=== PATIENT | female | born 1940 | race Two or more races ===

== ENCOUNTER 2017-08-30 17:07 | Inpatient (IN) | payer OTHER ==
[~2017-08-30] VITALS: Ht 162.6 cm; Wt 74.8 kg
[2017-08-30 18:00] VITALS: BP 167/92
[2017-08-30] MEDS ORDERED: Dicyclomine HCl 10mg/5ml oral soln ORAL ONE (18:30)
--- NOTE | 2017-08-30 18:32 | Emergency Room Report ---
History of Present Illness General Chief Complaint: Flu Like Symptoms Source: Patient Present Illness HPI 76yo F presents with cough for 3 days and recent diagnosis with pneumonia as well as flu for which she was prescribed clarithromycin and she is on day 3 of that Today she presents mainly because she started to develop abdominal pain constant left lower quad with no vomiting or diarrhea She denies fevers Denies shortness of breath Denies chest pain, and reports her cough is improving She denies hemoptysis, leg swelling or leg pain Allergies: Coded Allergies: No Known Allergies (Unverified , 08/30/17) Patient History Past Medical History: see triage record Last Menstrual Period: na Nursing Documentation-[facility] Past Medical History: No History, Except For Hx Hypertension: Yes Review of Systems All Other Systems: negative except mentioned in HPI Physical Exam Vital Signs Date Time Temp Pulse Resp B/P (MAP) Pulse Ox O2 Delivery O2 Flow Rate FiO2 08/30/17 17:23 100.2 88 18 181/90 93 Room Air Sp02 EP Interpretation: reviewed, normal General Appearance: no apparent distress, alert, non-toxic Head: normocephalic Eyes: bilateral eye normal inspection, bilateral eye PERRL, bilateral eye EOMI ENT: normal ENT inspection, hearing grossly normal, normal pharynx, no angioedema, normal voice, moist mucus membranes Neck: normal inspection, full range of motion, supple, supple/symm/no masses Respiratory: chest non-tender, lungs clear, normal breath sounds, chest symmetrical, palpation of chest normal Cardiovascular #1: normal peripheral pulses, regular rate, rhythm, no edema - trace ankle edema ilateral lower extremity, other - negative Homans sign bilateral lower extremity Cardiovascular #2: 2+ radial (R), 2+ radial (L), 2+ dorsalis pedis (R), 2+ dorsalis pedis (L) Gastrointestinal: normal inspection, non tender - positive left lower quadrant tenderness, soft, no mass, no guarding, no rebound, tenderness - left lower quadrant tenderness Rectal: deferred Genitourinary: normal inspection, no CVA tenderness Musculoskeletal: back normal, gait/station normal, normal range of motion, non- tender, no calf tenderness Neurologic: alert, responsive, 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 Solorzano, who will come in to take patient to OR. ABX started, family aware, patient remains stable. Chest X-Ray Diagnostic Results Chest X-Ray Diagnostic Results : Chest X-Ray Ordered: Yes # of Views/Limited/Complete: 1 View Indication: Shortness of Breath EP Interpretation: No Interpretation: other - free air Electronically Signed by: Elaine Dhillon MD CT/MRI/US Diagnostic Results CT/MRI/US Diagnostic Results : Imaging Test Ordered: ct abd pelvis Impression perforated sigmoid colon, no abscess Last Vital Signs Date Time Temp Pulse Resp B/P (MAP) Pulse Ox O2 Delivery O2 Flow Rate FiO2 08/30/17 17:23 100.2 88 18 181/90 93 Room Air Status: improved Reevaluation Impression pain improved with meds, and still stable, will admit to gen surgery Disposition: ADMITTED INPATIENT Referrals: [facility],REFERRING (PCP) ELAINE DHILLON M.D Aug 30, 2017 18:32
[2017-08-30 18:53] LABS: HEMATOCRIT 43.5 % (37.0-47.0); MEAN CORPUSCULAR VOLUME 92 FL (80-99); PLATELET COUNT 259 K/UL (150-450); RED BLOOD COUNT 4.74 M/UL (4.20-5.40); RED CELL DISTRIBUTION WIDTH 12.1 % (11.6-14.8)
[2017-08-30 19:23] LABS: ANION GAP 7 mmol/L (5-15); BLOOD UREA NITROGEN 13 mg/dL (7-18); CALCIUM 9.4 MG/DL (8.5-10.1); CARBON DIOXIDE 31 MMOL/L (21-32); CHLORIDE 103 MMOL/L (98-107); CREATININE 0.6 MG/DL (0.55-1.30); POTASSIUM 3.9 MMOL/L (3.5-5.1); SODIUM 140 MMOL/L (136-145)
[2017-08-30 19:27] LABS: ALANINE AMINOTRANSFERASE 36 U/L (12-78); ALBUMIN 3.8 G/DL (3.4-5.0); ALBUMIN/GLOBULIN RATIO 1.1 (1.0-2.7); ALKALINE PHOSPHATASE 64 U/L (46-116); ASPARTATE AMINO TRANSFERASE 36 U/L (15-37); BILIRUBIN,TOTAL 0.7 MG/DL (0.2-1.0)
[2017-08-30 19:30] VITALS: BP 162/89
[2017-08-30 19:35] LABS: APPEARANCE,URINE CLEAR; BILIRUBIN, URINE NEGATIVE (NEGATIVE); COLOR,URINE PALE YELLOW; GLUCOSE, URINE (UA) NEGATIVE (NEGATIVE); KETONES,URINE NEGATIVE (NEGATIVE); LEUKOCYTE ESTERASE ,URINE 1+ (NEGATIVE); NITRITE,URINE NEGATIVE (NEGATIVE); PH,URINE 8 (4.5-8.0); PROTEIN,URINE NEGATIVE (NEGATIVE); UROBILINOGEN,URINE NORMAL MG/DL (0.0-1.0)
[2017-08-30] MEDS ORDERED: Unasyn 3gm Inj IV ONE (19:45)
[2017-08-30] MEDS ORDERED: ZYRTEC10 MG ORAL (19:59)
[2017-08-30] MEDS ORDERED: CLARITHROMYCIN500 MG PO (19:59)
[2017-08-30] MEDS ORDERED: LOSARTAN POTASS50 MG ORAL (20:05)
[2017-08-30 20:30] VITALS: BP 151/71
[2017-08-30 21:30] VITALS: BP 162/74
--- NOTE | 2017-08-30 22:15 | Consultation ---
History of Present Illness General Date patient seen: Aug 30, 2017 Chief Complaint: Flu Like Symptoms Reason for Consultation: perforated viscus Present Illness HPI 76 year old female with past medical history of HTN, osteoperosis, arthritis presented with acute onset of abdominal pain x 1 day. As per patient, she was doing well until 10:00am this morning when she noted acute lower abdominal discomfort that has since progressed. Pain described as 9/10 cramping/sharp lower abdominal pain without radiation. No associated nausea or emesis. No fever or chills. As pain progressed she came to ED for evaluation. In ED noted to have lower abdominal tenderness, leukocytosis of 19k, and plain films with free air. CT performed and identified pneumoperitoneum with likely etiology perforated sigmoid colon. Surgery called. Patient states last meal earlier today. Currently no appetite. Had two normal BM's this morning around time of pain. Has never had colonoscopy prior. PMHx: osteoperosis, HTN, arthritis PSHx: Hysterectomy Meds: Losartan NKDA Social Hx: negative x3 FHx: n/c Allergies: Coded Allergies: No Known Allergies (Unverified , 08/30/17) Medication History Scheduled Clarithromycin* (Clarithromycin*), 500 MG PO DAILY, (Reported) Losartan Potassium* (Losartan Potassium*), 100 MG ORAL DAILY, (Reported) Scheduled PRN Cetirizine Hcl* (Zyrtec*), 10 MG ORAL DAILY PRN for ALLERGIES, (Reported) Patient History History Provided By: Patient, Family Member Healthcare decision maker Resuscitation status Advanced Directive on File Past Medical/Surgical History Past Medical/Surgical History: (1) H/O hysterectomy with oophorectomy (2) HTN (hypertension) (3) Age related osteoporosis (4) Arthritis (5) Pneumoperitoneum (6) Acute abdomen (7) Peritonitis Review of Systems Constitutional: Denies: no symptoms, see HPI, chills, sweats, fever, malaise, weakness, other Eye: Denies: no symptoms, see HPI, eye pain, blurred vision, tearing, double vision, nose pain, nose congestion, acuity changes, discharge, other ENT: Denies: no symptoms, see HPI, ear pain, ear discharge, nose pain, nose congestion, throat pain, throat swelling, mouth pain, hearing loss, nasal discharge, other Respiratory: Reports: cough, Denies: no symptoms, see HPI, orthopnea, shortness of breath, stridor, wheezing, PAYNE, sputum, other Cardiovascular: Denies: no symptoms, see HPI, chest pain, edema, palpitations, syncope, PND, other Gastrointestinal: Reports: abdominal pain Genitourinary: Denies: no symptoms, see HPI, discharge, dysuria, frequency, hematuria, pain, retention, incontinence, urgency, vag bleed/dc, other Musculoskeletal: Denies: no symptoms, see HPI, back pain, gout, joint pain, joint swelling, muscle pain, muscle stiffness, other Skin: Denies: no symptoms, see HPI, rash, change in color, change in hair/nails , dryness, lesions, other Psychiatric: Denies: no symptoms, see HPI, prior hx, anxiety, depressed feelings, emotional problems, SI, HI, hallucinations, other Neurological: Denies: no symptoms, see HPI, headache, numbness, paresthesia, seizure, tingling, tremors, focal weakness, syncope, dizziness, other Endocrine: Denies: no symptoms, see HPI, excessive sweating, flushing, intolerance to temperature, increased thirst, increased urine, unexplained weight loss, other Hematologic/Lymphatic: Denies: no symptoms, see HPI, anemia, blood clots, easy bleeding, easy bruising, swollen glands, diathesis, other Physical Exam General Appearance: mild distress Lines, tubes and drains: peripheral HEENT: normocephalic, mucous membranes moist, PERRL Neck: normal inspection Respiratory/Chest: normal breath sounds, no respiratory distress, no accessory muscle use Cardiovascular/Chest: normal peripheral pulses, normal rate, regular rhythm Abdomen: soft, distended, guarding, rebound, tender, other - lower abdominal tendneress with peritonitis, guarding, rebound. Extremities: normal inspection Skin Exam: normal pigmentation Neurologic: alert, oriented x 3, responsive Last 24 Hour Vital Signs Date Time Temp Pulse Resp B/P (MAP) Pulse Ox O2 Delivery O2 Flow Rate FiO2 08/30/17 19:30 98.8 84 18 162/89 98 Room Air 08/30/17 18:00 101.1 18 167/92 93 Room Air 08/30/17 18:00 88 18 Room Air 08/30/17 17:23 100.2 88 18 181/90 93 Room Air Laboratory Tests Test 2/8/18 18:16 08/30/17 19:00 08/30/17 20:10 White Blood Count 19.0 K/UL (4.8-10.8) H Red Blood Count 4.74 M/UL (4.20-5.40) Hemoglobin 15.0 G/DL (12.0-16.0) Hematocrit 43.5 % (37.0-47.0) Mean Corpuscular Volume 92 FL (80-99) Mean Corpuscular Hemoglobin 31.6 PG (27.0-31.0) H Mean Corpuscular Hemoglobin Concent 34.4 G/DL (32.0-36.0) Red Cell Distribution Width 12.1 % (11.6-14.8) Platelet Count 259 K/UL (150-450) Mean Platelet Volume 9.1 FL (6.5-10.1) Neutrophils (%) (Auto) % (45.0-75.0) Lymphocytes (%) (Auto) % (20.0-45.0) Monocytes (%) (Auto) % (1.0-10.0) Eosinophils (%) (Auto) % (0.0-3.0) Basophils (%) (Auto) % (0.0-2.0) Differential Total Cells Counted 100 Neutrophils % (Manual) 82 % (45-75) H Lymphocytes % (Manual) 12 % (20-45) L Monocytes % (Manual) 6 % (1-10) Eosinophils % (Manual) 0 % (0-3) Basophils % (Manual) 0 % (0-2) Band Neutrophils 0 % (0-8) Platelet Estimate Adequate Platelet Morphology Normal Red Blood Cell Morphology Normal Prothrombin Time 10.1 SEC (9.30-11.50) Prothromb Time International Ratio 1.0 (0.9-1.1) Activated Partial Thromboplast Time 29 SEC (23-33) Sodium Level 140 MMOL/L (136-145) Potassium Level 3.9 MMOL/L (3.5-5.1) Chloride Level 103 MMOL/L (98-107) Carbon Dioxide Level 31 MMOL/L (21-32) Anion Gap 7 mmol/L (5-15) Blood Urea Nitrogen 13 mg/dL (7-18) Creatinine 0.6 MG/DL (0.55-1.30) Estimat Glomerular Filtration Rate mL/min (>60) Glucose Level 105 MG/DL (74-106) Calcium Level 9.4 MG/DL (8.5-10.1) Total Bilirubin 0.7 MG/DL (0.2-1.0) Aspartate Amino Transf (AST/SGOT) 36 U/L (15-37) Alanine Aminotransferase (ALT/SGPT) 36 U/L (12-78) Alkaline Phosphatase 64 U/L (46-116) Troponin I 0.010 ng/mL (0.000-0.056) Total Protein 7.4 G/DL (6.4-8.2) Albumin 3.8 G/DL (3.4-5.0) Globulin 3.6 g/dL Albumin/Globulin Ratio 1.1 (1.0-2.7) Lipase 112 U/L (73-393) Urine Color Pale yellow Urine Appearance Clear Urine pH 8 (4.5-8.0) Urine Specific [place] 1.015 (1.005-1.035) Urine Protein Negative (NEGATIVE) Urine Glucose (UA) Negative (NEGATIVE) Urine Ketones Negative (NEGATIVE) Urine Occult Blood Negative (NEGATIVE) Urine Nitrite Negative (NEGATIVE) Urine Bilirubin Negative (NEGATIVE) Urine Urobilinogen Normal MG/DL (0.0-1.0) Urine Leukocyte Esterase 1+ (NEGATIVE) H Urine RBC 0-2 /HPF (0 - 2) Urine WBC 2-4 /HPF (0 - 2) Urine Squamous Epithelial Cells Few /LPF (NONE/OCC) Urine Bacteria Few /HPF (NONE) Lactic Acid Level 2.10 mmol/L (0.66-2.22) 1.60 mmol/L (0.66-2.22) Height (Feet): 5 Height (Inches): 4.00 Weight (Pounds): 165 Medications Current Medications Medications (Trade) Dose Ordered Sig/Esther Route PRN Reason Start Time Stop Time Status Last Admin Dose Admin Sodium Chloride 1,000 ml @ 100 mls/hr Q10H ONCE IV 08/30/17 17:53 08/31/17 03:52 08/30/17 18:18 Assessment/Plan Problem List: (1) Perforated abdominal viscus Assessment & Plan: 76F with acute perforated abdominal viscus likely sigmoid colon. Afebrile, HD stable, leukocytosis 19k, CT findings as above, exam with lower abdominal peritonitis/rebound/guarding, acute abdomen. discussed findings with patient and family. exploratory laparotomy, possible bowel resection, possible ostomy recommended. -To OR don -NPO -IV fluids -IV Abx -consent SNOMED: [id number] Blake Farley Aug 30, 2017 22:15
[2017-08-30 22:30] VITALS: BP 148/71
[2017-08-30] MEDS ORDERED: LR 1000ml 1,000 ML IVLG SCH (22:56)
[2017-08-30] MEDS ORDERED: HYDROcodone/Acetamin 7.5/325 tab ORAL PRN (23:00)
[2017-08-30] MEDS ORDERED: Ketorolac 60mg Inj IV PRN (23:00)
[2017-08-30] MEDS ORDERED: Labetalol 5mg/ml 20ml vial IV PRN (23:00)
[2017-08-30] MEDS ORDERED: LORazepam Inj 2mg/ml 1ml IV PRN (23:00)
[2017-08-30] MEDS ORDERED: Hydromorphone 0.5mg/0.5ml inj IVP PRN (23:00)
[2017-08-30] MEDS ORDERED: fentaNYL 100 mcg/2 mL IV PRN (23:00)
[2017-08-30] MEDS ORDERED: Midazolam 2mg/2ml Inj IVP PRN (23:00)
[2017-08-30] MEDS ORDERED: DiphenhydrAMINE 50mg/ml Inj IVP PRN (23:00)
[2017-08-30] MEDS ORDERED: Atropine Inj 1mg/10ml Syr IV PRN (23:00)
[2017-08-30] MEDS ORDERED: NS Irrig 1000ml ONE (23:00)
[2017-08-30] MEDS ORDERED: Lidocaine 1% MPF 10mg/ml 5ml ONE (23:00)
[2017-08-30] MEDS ORDERED: Neostigmine 1mg/ml 10ml Inj ONE (23:00)
[2017-08-30] MEDS ORDERED: Sterile Water Irrig 1000ml IRRIG ONE (23:00)
[2017-08-30] MEDS ORDERED: Ketorolac 30mg Inj IV PRN (23:00)
[2017-08-30] MEDS ORDERED: fentaNYL 100 mcg/2 mL IV ONE (23:00)
[2017-08-30] MEDS ORDERED: LR 1000ml ONE (23:00)
[2017-08-30] MEDS ORDERED: Propofol 200mg/20ml IV ONE (23:00)
[2017-08-30] MEDS ORDERED: Norco 5mg/325mg tab ORAL PRN (23:00)
[2017-08-30] MEDS ORDERED: Midazolam 2mg/2ml Inj ONE (23:00)
[2017-08-30] MEDS ORDERED: Glycopyrrolate 0.2mg/ml 1ml Vial ONE (23:00)
[2017-08-30] MEDS ORDERED: oxyCODONE HCL/Acetaminophen 5/325mg ORAL PRN (23:00)
--- NOTE | 2017-08-30 23:07 | Anethesia Preoperative Eval ---
Anesthesia Pre-op PMH/ROS General Date of Evaluation: Aug 30, 2017 Time of Evaluation: 11:11 Anesthesiologist: Chacho ASA Score: ASA 3 - Emergency Mallampati Score Class I : Soft palate, uvula, fauces, pillars visible Class II: Soft palate, uvula, fauces visible Class III: Soft palate, base of uvula visible Class IV: Only hard plate visible Mallampati Classification: Class II Surgeon: Martine Diagnosis: Colon Perforation Surgical Procedure: Exp Lap, Colon Resection Anesthesia History: none Family History: no anesthesia problems Allergies: Coded Allergies: No Known Allergies (Unverified , 08/30/17) Medications: see eMAR Past Medical History Cardiovascular: Reports: HTN Pulmonary: Reports: asthma - Bronchitis Gastrointestinal/Genitourinary: Reports: other - Colon Perforation Anesthesia Pre-op Phys. Exam Physician Exam Last Vital Signs Date Time Temp Pulse Resp B/P (MAP) Pulse Ox O2 Delivery O2 Flow Rate FiO2 08/30/17 19:30 98.8 84 18 162/89 98 Room Air Constitutional: NAD Neurologic: CN 2-12 intact Cardiovascular: RRR Respiratory: CTA Gastrointestinal: S/NT/ND Airway Exam Mallampati Score: Class II MO: limited ROM: limited Teeth: missing, intact Anesthesia Pre-op A/P Labs Hematology Test 08/30/17 18:16 White Blood Count 19.0 K/UL (4.8-10.8) H Red Blood Count 4.74 M/UL (4.20-5.40) Hemoglobin 15.0 G/DL (12.0-16.0) Hematocrit 43.5 % (37.0-47.0) Mean Corpuscular Volume 92 FL (80-99) Mean Corpuscular Hemoglobin 31.6 PG (27.0-31.0) H Mean Corpuscular Hemoglobin Concent 34.4 G/DL (32.0-36.0) Red Cell Distribution Width 12.1 % (11.6-14.8) Platelet Count 259 K/UL (150-450) Mean Platelet Volume 9.1 FL (6.5-10.1) Neutrophils (%) (Auto) % (45.0-75.0) Lymphocytes (%) (Auto) % (20.0-45.0) Monocytes (%) (Auto) % (1.0-10.0) Eosinophils (%) (Auto) % (0.0-3.0) Basophils (%) (Auto) % (0.0-2.0) Differential Total Cells Counted 100 Neutrophils % (Manual) 82 % (45-75) H Lymphocytes % (Manual) 12 % (20-45) L Monocytes % (Manual) 6 % (1-10) Eosinophils % (Manual) 0 % (0-3) Basophils % (Manual) 0 % (0-2) Band Neutrophils 0 % (0-8) Platelet Estimate Adequate Platelet Morphology Normal Red Blood Cell Morphology Normal Coagulation Test 08/30/17 18:16 Prothrombin Time 10.1 SEC (9.30-11.50) Prothromb Time International Ratio 1.0 (0.9-1.1) Activated Partial Thromboplast Time 29 SEC (23-33) Chemistry Test 08/30/17 18:16 08/30/17 19:00 08/30/17 20:10 Sodium Level 140 MMOL/L (136-145) Potassium Level 3.9 MMOL/L (3.5-5.1) Chloride Level 103 MMOL/L (98-107) Carbon Dioxide Level 31 MMOL/L (21-32) Anion Gap 7 mmol/L (5-15) Blood Urea Nitrogen 13 mg/dL (7-18) Creatinine 0.6 MG/DL (0.55-1.30) Estimat Glomerular Filtration Rate mL/min (>60) Glucose Level 105 MG/DL (74-106) Calcium Level 9.4 MG/DL (8.5-10.1) Total Bilirubin 0.7 MG/DL (0.2-1.0) Aspartate Amino Transf (AST/SGOT) 36 U/L (15-37) Alanine Aminotransferase (ALT/SGPT) 36 U/L (12-78) Alkaline Phosphatase 64 U/L (46-116) Troponin I 0.010 ng/mL (0.000-0.056) Total Protein 7.4 G/DL (6.4-8.2) Albumin 3.8 G/DL (3.4-5.0) Globulin 3.6 g/dL Albumin/Globulin Ratio 1.1 (1.0-2.7) Lipase 112 U/L (73-393) Lactic Acid Level 2.10 mmol/L (0.66-2.22) 1.60 mmol/L (0.66-2.22) Risk Assessment & Plan Assessment: ASA 3E Plan: GA, BIS, GlideScope Go Status Change Before Surgery: No Pre-Antibiotics Dru Grams Ancef IV Given Within 1 Hr of Incision: Yes Time Given: 11:31 Jonathan Flor MD Aug 30, 2017 23:07
--- NOTE | 2017-08-30 23:08 | Pre-Procedure Note/Attestation ---
Pre-Procedure Note/Attestation Complete Prior to Procedure Planned Procedure: not applicable Procedure Narrative: exploratory laparostomy, possible bowel resection, possible ostomy Indications for Procedure Pre-Operative Diagnosis: perforated abdominal viscus Attestation I attest that I discussed the nature of the procedure; its benefits; risks and complications; and alternatives (and the risks and benefits of such alternatives ), prior to the procedure, with the patient (or the patient's legal maintenance representative). I attest that, if there was a reasonable possibility of needing a blood transfusion, the patient (or the patient's legal maintenance representative) was given the [facility] standardized written summary, pursuant to the Alfredo Dave Blood Safety Act ([place] Health and Safety Code # 1645, as amended). I attest that I re-evaluated the patient just prior to the surgery and that there has been no change in the patient's H&P, except as documented below: Blake Farley Aug 30, 2017 23:08
--- NOTE | 2017-08-30 23:08 | Immediate Post-Op Evaluation ---
Immediate Post-Op Evalulation Immediate Post-Op Evalulation Procedure: Exp Lap, Colon Resection Date of Evaluation: Aug 30, 2017 Time of Evaluation: 02:47 IV Fluids: 2000 LR Blood Products: 0 Estimated Blood Loss: 100 Urinary Output: 800 Blood Pressure Systolic: 158 Blood Pressure Diastolic: 80 Pulse Rate: 89 Respiratory Rate: 16 O2 Sat by Pulse Oximetry: 95 Temperature (Fahrenheit): 98.8 Pain Score (1-10): 2 Nausea: No Vomiting: No Complications 0 Patient Status: awake, reacts, patent, extubated, none Hydration Status: adequate Dru Grams Ancef IV Given Within 1 Hr of Incision: Yes Time Given: 23:31 Jonathan Flor MD Aug 30, 2017 23:08
[2017-08-31] VITALS (10 sets, daily range): BP systolic 110–162; BP diastolic 56–82
[2017-08-31] MEDS ORDERED: NS Irrig 2000ml IRRIG ONE (00:08)
--- NOTE | 2017-08-31 02:46 | Brief Operative Note ---
Immediate Post Operative Note Operative Note Pre-op Diagnosis: perforated abdominal viscus Procedure: exploratory laparotomy with sigmoid colon resection Post-op Diagnosis: perforated sigmoid diverticulitis Post-op Diagnosis: same as pre-op plus Surgeon: liliane Anesthesiologist: Alfred Anesthesia: general Specimen: yes - sigmoid colon, proximal and distal donut Complications: none Condition: stable Fluids: see records Estimated Blood Loss: volume Drains: none Implant(s) used?: No Blake Farley Aug 31, 2017 02:46
[2017-08-31] MEDS ORDERED: Ketorolac 30mg Inj IV PRN (03:00)
[2017-08-31] MEDS ORDERED: LR 1000ml 1,000 ML IV SCH (03:00)
[2017-08-31] MEDS ORDERED: DiphenhydrAMINE 50mg/ml Inj IVP PRN (03:00)
[2017-08-31] MEDS ORDERED: Hydromorphone 0.5mg/0.5ml inj IVP PRN (03:00)
[2017-08-31] MEDS: Piperacillin/Tazobactam 3.375 GM in NS 110 ML IVPB SCH ×3 (04:12→20:24)
[2017-08-31] MEDS ORDERED: NORVASC5 MG ORAL (04:36)
[2017-08-31] MEDS ORDERED: ASPIR 8181 MG ORAL (04:37)
[2017-08-31] MEDS: HYDROmorphone 1mg/ml Carpuject IVP PRN ×2 (06:35→18:25)
--- NOTE | 2017-08-31 08:25 | 48 Hour Post Anesthesia Eval ---
Post Anesthesia Evaluation Procedure: Exp Lap, Colon Resection Date of Evaluation: Aug 31, 2017 Time of Evaluation: 07:00 Blood Pressure Systolic: 121 0: 61 Pulse Rate: 82 Respiratory Rate: 18 Temperature (Fahrenheit): 99.7 O2 Sat by Pulse Oximetry: 95 Airway: patent Nausea: No Vomiting: No Pain Intensity: 2 Hydration Status: adequate Cardiopulmonary Status: at baseline Mental Status/LOC: patient returned to baseline Post-Anesthesia Complications: 0 Follow-up care needed: N/A - further care as per primary team MICHAEL DASILVA M.D. Aug 31, 2017 08:25
[2017-08-31] MEDS: LR 1000ml 1,000 ML IV SCH ×2 (08:30→13:31)
--- NOTE | 2017-08-31 09:12 | Diagnostic Imaging Report ---
Indication: Cough Technique: One view of the chest Comparison: none Findings: Sliver of lucency under the right hemidiaphragm is consistent with pneumoperitoneum. There is minimal atelectasis at the right lung base. The lungs and pleural spaces are otherwise clear. The heart is enlarged. Impression: Positive for pneumoperitoneum, therefore concerning for ruptured hollow viscus. Cardiomegaly Right basilar atelectasis. No other acute cardiopulmonary process This agrees with the preliminary interpretation provided overnight by [facility] service.
[2017-08-31] MEDS: Heparin 5000 units/ml inj SUBQ SCH ×2 (09:22→20:26)
--- NOTE | 2017-08-31 09:33 | Diagnostic Imaging Report ---
Clinical Indication: Abdominal pain Technique: No oral contrast utilized, per emergency room physician request IV administration nonionic contrast. Venous phase spiral acquisition obtained through the abdomen and pelvis. Multiplanar reconstructions were generated. Total dose length product 832.73 mGycm. CTDIvol(s) 15.7 mGy. Dose reduction achieved using automated exposure control Comparison: none Findings: There is a moderate size collection of extraluminal gas in the mesenteric fat surrounding the proximal sigmoid colon. Gas is seen dissecting through the mesenteric root, and there are bubbles of free intraperitoneal air in the anterior peritoneal space, over the dome of the liver, adjacent to the left hepatic lobe, adjacent to the greater curvature of the stomach, over the dome of the spleen, and extending into a broad-based umbilical hernia. No associated fluid collections are evident. There is colonic diverticulosis. There is only minimal infiltration of fat surrounding the perisigmoid gas collection. The appendix is normal. There are some mildly dilated fluid-filled small bowel loops in the lower abdomen, but no generalized small bowel distention and no transition point is demonstrated. The liver, gallbladder, bile ducts, pancreas, spleen, adrenals, kidneys are unremarkable. No retroperitoneal or mesenteric mass or adenopathy. No pelvic mass or adenopathy. The uterus is not visualized, presumed surgically absent The heart is borderline enlarged. Lung bases are clear except for minimal atelectatic changes. The bones demonstrate degenerative spondylosis changes. Impression: Extraluminal gas within the mesentery and peritoneal space. Largest gas collection is adjacent to the sigmoid colon suggesting ruptured diverticulitis as etiology. There is only minimal perisigmoid fat infiltration and no focal fluid collections. Mildly dilated fluid-filled small bowel loops likely reflect mild ileus related to the above Mild cardiomegaly Basilar atelectatic changes. Evidence of prior hysterectomy This agrees with the preliminary interpretation provided overnight by [facility]. The CT scanner at [facility] is accredited by the [employer] and the scans are performed using protocols designed to limit radiation exposure to as low as reasonably achievable to attain images of sufficient resolution adequate for diagnostic evaluation.
[2017-08-31 11:58] LABS: HEMATOCRIT 37.4 % (37.0-47.0); HEMOGLOBIN 12.9 G/DL (12.0-16.0); MEAN CORPUSCULAR VOLUME 93 FL (80-99); PLATELET COUNT 243 K/UL (150-450); RED CELL DISTRIBUTION WIDTH 12.4 % (11.6-14.8); WHITE BLOOD COUNT 18.9 K/UL (4.8-10.8)
[2017-08-31 12:26] LABS: ANION GAP 6 mmol/L (5-15); BLOOD UREA NITROGEN 16 mg/dL (7-18); CALCIUM 8.5 MG/DL (8.5-10.1); CARBON DIOXIDE 28 MMOL/L (21-32); CHLORIDE 104 MMOL/L (98-107); CREATININE 0.8 MG/DL (0.55-1.30); PHOSPHORUS 4.1 MG/DL (2.5-4.9); POTASSIUM 4.2 MMOL/L (3.5-5.1); SODIUM 138 MMOL/L (136-145)
--- NOTE | 2017-08-31 12:36 | General Progress Note ---
Progress Note Progress Note Surgery: no acute events since surgery. states she feels well. comfortable. pain improved as compared to pre op. no n/v/f/c. no flatus or bm afebrile, HD stable, labs okay abd soft, incisional tenderness, improved as compared to pre op, wounds c/d/i, less distended. POD #1 s/p ex lap with sigmoid resection and primary anastomosis. recovering -NPO -IV fluids -IV Abx -Ambulate and OOB -Flowers for one more day until more ambulatory -DVT ppx -incentive spirometry Blake Farley Aug 31, 2017 12:36
--- NOTE | 2017-08-31 16:36 | Cardiology Report ---
APPROVED REPORT EKG Measurement Heart [id number] Normal sinus rhythm Normal ECG
--- NOTE | 2017-08-31 23:45 | Operative Note - Dictated ---
DATE OF OPERATION: 08/31/2017 PREOPERATIVE DIAGNOSIS: Perforated abdominal viscus. POSTOPERATIVE DIAGNOSIS: Perforated sigmoid diverticulitis. OPERATION PERFORMED: 1. Exploratory laparotomy. 2. Sigmoid colon resection with primary anastomosis. ATTENDING SURGEON: Blake Farley M.D. SECOND OFFICER: None. ANESTHESIOLOGIST: Jonathan Flor M.D. ANESTHESIA: General SLPS. SPECIMENS: 1. Sigmoid colon. 2. Proximal and distal donuts from anastomosis. COMPLICATIONS: None. IV FLUIDS: Please see anesthesia records. ESTIMATED BLOOD LOSS: 100 mL. ANTIBIOTICS: The patient was on scheduled IV antibiotics for acute active inflammatory process. SPONGE AND NEEDLE COUNT: Correct x2. WOUND CLASSIFICATION: Class III. DRAINS: None. IMPLANTS: None. INDICATIONS FOR PROCEDURE: This is a 76-year-old female who presented to the emergency room at [facility] complaining of worsening generalized abdominal tenderness with focus in the lower abdomen. The patient was well until earlier this morning when awoke with acute onset and then progressively worsening pain. When seen in the emergency department, she was noted to have a leukocytosis and CT scan with pneumoperitoneum suggestive of perforated abdominal viscus. When seen at the bedside, the patient had focal peritonitis in the lower abdomen with generalized abdominal tenderness, rebound and guarding. Given the above findings, laparotomy was indicated and recommended. I discussed with the patient and family the findings and the likelihood of abdominal viscus perforation with potential being sigmoid diverticulitis given the findings. I explained the risks, benefits, alternatives of surgical intervention including non-operating. We discussed surgical intervention including exploratory laparotomy, possible bowel resection, possible ostomy. I explained to her in detail that if there were significant soilage, diminished blood supply, tension, or other concerning features, then a colostomy would be performed, but if possible give a primary anastomosis with temporary diversion if necessary. We discussed the potential of a colostomy and need for it. We also discussed the potential risks of anastomosis even in the best of circumstances including failure, leak, and necessity for second operation and future colostomy and worsening condition if complicated. Morbidity and mortality of the procedure were discussed in detail with the patient and family. Consent was obtained and surgery was performed beginning on 08/30/2017 and ending 08/31/2017. OPERATIVE NOTE: The patient was taken to the operating room and placed on the operating table in supine position with bilateral arms out. All bony prominences were well padded. Appropriate time-out was taken identifying the patient, procedure, operative staff, and surgical staff. General anesthesia was induced and the patient was intubated. A Flowers catheter was inserted using sterile technique. Her abdomen was then prepped and draped in standard surgical fashion. SCDs were placed. A lower laparotomy incision was made beginning at the umbilicus towards the pubic tubercle. Incision was carried down through the subcutaneous tissue and the fascia was elevated and incised and divided using electrocautery. Upon entry into the abdomen, there were some adhesions from patient's prior surgery. Most adhesions were omental in nature and adhesions were taken down exposing the abdominal cavity. Once this was complete, the abdominal contents were noted. A Bookwalter retractor was placed, and the attention was turned to the left lower quadrant where significantly thickened, dilated, gas-filled mesentery bowel was identified the likely etiology. At this time, the remainder of the abdomen was inspected. The right lower quadrant, appendix and cecum looked okay. The liver was palpated. No abnormalities down in the right upper quadrant. The stomach was not distended and otherwise normal. The transverse colon and omentum were identified and normal. The descending colon was then evaluated and no abnormalities were noted. The sigmoid colon was noted to be fairly thickened with a lot of fat around it. An area of perforation was then identified around the medial mid antimesenteric location or in the proximal mid sigmoid colon. The remainder of the sigmoid colon was evaluated, so was the beginning portions of the rectum, which did have some adhesions from the patient's prior hysterectomy. At this time, the small bowel and omentum and other portions of the bowel were retracted towards the right upper quadrant exposing the descending colon, sigmoid colon, down to the rectum. The mesentery was identified and fairly thickened and did have pneumatosis in it from perforations noted on CT as well. The distal sigmoid colon did have areas of significant diverticulitis as well some of the proximal portion. At this time given these findings, decision was made for a formal sigmoid resection. The rectum was identified and just proximal to the rectum, the mesentery of the colon was divided with energy device Thunderbeat. The bowel was circumferentially dissected free and a contour linear stapler was used to divide the bowel at the colorectal junction. Following this, the mesentery of the small bowel was divided with Thunderbeat energy device towards the proximal sigmoid colon. Once this was completed, disease portions of the sigmoid colon including area perforation and significant diverticular disease were freed. The proximal resection margin was identified. A linear stapling device was then used to divide the bowel in this area as well. Following this, the specimen was evaluated and then sent to pathology for review. We then evaluated the proximal and distal staple lines, and they were noted to be hemostatic and intact. The abdomen was irrigated with copious amounts of saline. Hemostasis was achieved with energy device as necessary. At this time, white line of Toldt more proximally was divided and portions of the splenic flexure were freed and taken down. This allowed for a good mobilization of the remaining distended colon. The remaining colon was otherwise healthy and no other abnormalities noted. There was no significant pus or leakage of bowel contents into the abdomen. At this time, evaluation was made for potential colostomy versus primary anastomosis. In evaluating the bowel, there was a sufficient blood supply with no areas of ischemia noted in the proximal or distal ends. There was significant length once mobilization of the splenic flexure was completed with the proximal and distal staple lines being able to reach each other without any significant tension. There was no gross spillage or contamination, and the areas of edema and diseased bowel were excised. The remainder of the bowel was healthy. The patient was hemodynamically stable and otherwise healthy without too many significant comorbidities. Given these findings, decision was made to proceed with a primary anastomosis rather than a colostomy. The abdomen was irrigated with saline, and a 29 mm EEA stapler was opened after evaluating sizing of the bowel. At this time, the patient was placed in lithotomy taking great care to ensure that sterile field was not violated. Once this was completed, the rectal exam was performed and very minimal stool from the rectal vault was evacuated. Rectal exam was otherwise normal. The proximal staple line was then excised and the anvil of the EEA stapler was placed in the end of the bowel. A nylon suture was used for a pursestring around the anvil. Pursestring was noted to be appropriate and anvil placed without issues. The mesentery of the bowel was evaluated as well as the orientation of the bowel to ensure that there was no kinking or twisting upon anastomosis. At this time, EEA stapler was entered through the anus into the rectum and identified in the abdomen. The anvil and staple were connected together, mesenteries were evaluated, and bowel orientation was noted to be appropriate. There was no tension or other abnormalities noted upon closing the stapler. One staple was closed circumferentially the staple line was evaluated and noted to be appropriate and therefore stapler was fired. No complication from primary end-to-end stapled anastomosis was noted. The anterior staple line was secured with 3-0 nylon Lambert sutures. Following this, the pelvis was filled with sterile saline above the area of anastomosis. The proximal small bowel was clamped off with fingers. A rigid sigmoidoscope was placed and air insufflated into the rectum and bowel. The leak test was negative and no bubbles or other abnormalities were noted. The bowel distended to the point of the clamping at the descending colon without any issues. The air was then evacuated and the bowel allowed to decompress. The fluid was suctioned. The anastomosis was noted to be satisfactory and hemostatic. The surrounding tissue was noted to be satisfactory and hemostatic. At this time, successful primary end-to-end anastomosis was completed and we began the conclusion of our procedure. All sponge, needles, and towels were counted for. The retractors were removed. The small bowel was allowed to fall into its anatomic location. The omentum was draped over the small bowel. We began conclusion of the procedure with closure of the abdominal wound using #1 looped PDS suture. Once fascia was appropriately closed without any immediate complication or abnormality, the subcutaneous tissue and skin wound were cleansed. The skin incision was then closed using skin ruthie. Dressings were then applied. The patient was extubated and taken to the postanesthetic care unit in stable condition. Blake Farley M.D. DR: Bernie JOB#: [id number] CC: LINDA
[2017-09-01 00:08] VITALS: BP 131/62
[2017-09-01] MEDS: Piperacillin/Tazobactam 3.375 GM in NS 110 ML IVPB SCH ×3 (03:03→18:32)
[2017-09-01] MEDS: LR 1000ml 1,000 ML IV SCH ×3 (04:30→22:15)
[2017-09-01 04:50] VITALS: BP 148/63
[2017-09-01 07:55] LABS: BASOPHILS % (AUTO) 0.2 % (0.0-2.0); EOSINOPHILS % (AUTO) 0.1 % (0.0-3.0); HEMATOCRIT 38.3 % (37.0-47.0); HEMOGLOBIN 12.9 G/DL (12.0-16.0); LYMPHOCYTES % (AUTO) 13.5 % (20.0-45.0); MEAN CORPUSCULAR VOLUME 95 FL (80-99); MONOCYTES % (AUTO) 5.2 % (1.0-10.0); NEUTROPHILS % (AUTO) 81.1 % (45.0-75.0); PLATELET COUNT 231 K/UL (150-450); RED BLOOD COUNT 4.05 M/UL (4.20-5.40); RED CELL DISTRIBUTION WIDTH 12.4 % (11.6-14.8); WHITE BLOOD COUNT 14.1 K/UL (4.8-10.8)
[2017-09-01 07:59] LABS: ANION GAP 4 mmol/L (5-15); BLOOD UREA NITROGEN 19 mg/dL (7-18); CALCIUM 8.9 MG/DL (8.5-10.1); CARBON DIOXIDE 30 MMOL/L (21-32); CHLORIDE 103 MMOL/L (98-107); CREATININE 0.7 MG/DL (0.55-1.30); PHOSPHORUS 2.1 MG/DL (2.5-4.9); POTASSIUM 4.3 MMOL/L (3.5-5.1); SODIUM 137 MMOL/L (136-145)
[2017-09-01] MEDS: HYDROmorphone 1mg/ml Carpuject IVP PRN (08:05)
[2017-09-01] MEDS: Heparin 5000 units/ml inj SUBQ SCH ×2 (08:57→20:42)
[2017-09-01 08:59] VITALS: BP 144/66
--- NOTE | 2017-09-01 10:32 | Consultation ---
Consult Note Consult Note History and Physical dictated Carlyle Velazquez MD Sep 01, 2017 10:32
[2017-09-01 11:56] VITALS: BP 152/66
--- NOTE | 2017-09-01 14:59 | General Progress Note ---
Progress Note Progress Note Surgery: doing well. no acute events. comfortable. pain improved. no n/v/f/c. had a little flatus but not consistent. ambulatory. afebrile, HD stable, labs improved abd soft, incisional tenderness, incision c/d/i recovering Keep NPO for now IV fluids IV Abx keep cuevas for one more day given low pelvic surgery ambulate and oob. awaiting return of bowel function Blake Farley Sep 01, 2017 14:59
--- NOTE | 2017-09-01 18:15 | History and Physical Report ---
DATE OF ADMISSION: 08/30/2017 HISTORY OF PRESENT ILLNESS: This is a 76-year-old female with a history of hypertension, osteoporosis, and degenerative osteoarthritis who came to the hospital with abdominal pain. She was noted to have lower abdominal discomfort. She was seen in the emergency room. In the emergency room, she was noted to have significant abdominal tenderness and leukocytosis. X-ray chest and CT confirmed presence of free air within the abdomen. The patient was urgently seen by Surgery and has undergone operative repair. PAST MEDICAL HISTORY: Hysterectomy, osteoporosis, hypertension, degenerative arthritis. HOME MEDICATIONS: Losartan only. ALLERGIES: None. SOCIAL HISTORY: No history of alcohol or tobacco usage. ALLERGIES: None reported. REVIEW OF SYSTEMS: The patient denies any headaches, hematemesis, melena, hematochezia, weight loss. PHYSICAL EXAMINATION: GENERAL: The patient is an elderly female. VITAL SIGNS: Blood pressure 140/60, heart rate 64, respirations , afebrile, T-max 99.4. HEENT: Unremarkable. CHEST: Clear breath sounds bilaterally. ABDOMEN: Soft. LABORATORY AND DIAGNOSTIC DATA: White count 60071, hemoglobin 12.9, and platelet count is normal. Creatinine is normal. CBC, BMP otherwise unremarkable. Imaging study discussed above. There is evidence of free air within the abdomen. IMPRESSION: 1. Perforated sigmoid diverticulitis. 2. Status post laparotomy and sigmoid colon resection with anastomosis. 3. Hypertension. DISCUSSION: 1. continue antibiotics. 2. The patient is presently on Zosyn which I will continue. 3. She is also on Pepcid and subcutaneous heparin. 4. Pain control. 5. Intravenous fluids. 6. We will continue to follow carefully and follow along with general surgery. Carlyle Velazquez M.D. DR: Haritha JOB#: [id number] CC:
[2017-09-01 20:00] VITALS: BP 158/76
[2017-09-02] VITALS: BP 160/71
[2017-09-02] MEDS: Piperacillin/Tazobactam 3.375 GM in NS 110 ML IVPB SCH ×3 (02:34→18:37)
[2017-09-02] MEDS: HYDROmorphone 1mg/ml Carpuject IVP PRN ×2 (03:47→20:34)
[2017-09-02 04:00] VITALS: BP 147/64
[2017-09-02 07:47] VITALS: BP 136/69
[2017-09-02 08:35] LABS: BASOPHILS % (AUTO) 0.4 % (0.0-2.0); EOSINOPHILS % (AUTO) 0.3 % (0.0-3.0); HEMATOCRIT 38.2 % (37.0-47.0); HEMOGLOBIN 13.3 G/DL (12.0-16.0); LYMPHOCYTES % (AUTO) 19.2 % (20.0-45.0); MEAN CORPUSCULAR VOLUME 94 FL (80-99); MONOCYTES % (AUTO) 7.2 % (1.0-10.0); NEUTROPHILS % (AUTO) 72.9 % (45.0-75.0); PLATELET COUNT 263 K/UL (150-450); RED BLOOD COUNT 4.05 M/UL (4.20-5.40); RED CELL DISTRIBUTION WIDTH 12.3 % (11.6-14.8); WHITE BLOOD COUNT 12.1 K/UL (4.8-10.8)
[2017-09-02] MEDS: Heparin 5000 units/ml inj SUBQ SCH ×2 (09:06→20:34)
[2017-09-02 09:11] LABS: ANION GAP 9 mmol/L (5-15); BLOOD UREA NITROGEN 17 mg/dL (7-18); CALCIUM 8.6 MG/DL (8.5-10.1); CARBON DIOXIDE 28 MMOL/L (21-32); CHLORIDE 100 MMOL/L (98-107); CREATININE 0.8 MG/DL (0.55-1.30); POTASSIUM 3.8 MMOL/L (3.5-5.1); SODIUM 137 MMOL/L (136-145)
[2017-09-02] MEDS: LR 1000ml 1,000 ML IV SCH ×2 (09:12→20:33)
--- NOTE | 2017-09-02 09:51 | Pulmonology Progress Note ---
Assessment/Plan Assessment/Plan IMPRESSION: 1. Perforated sigmoid diverticulitis. 2. Status post laparotomy and sigmoid colon resection with anastomosis. 3. Hypertension. DISCUSSION: 1. Continue antibiotics. Zosyn. 2. Continue Pepcid and subcutaneous heparin. 3. Pain control. 4. Intravenous fluids. 5. I will continue to follow carefully along with general surgery. 6. ? ADDIS cuevas Subjective Interval Events: Remains NPO; no BM or flatus Constitutional: Reports: no symptoms HEENT: Repors: no symptoms Respiratory: Reports: no symptoms Cardiovascular: Reports: no symptoms Gastrointestinal/Abdominal: Reports: no symptoms Allergies: Coded Allergies: No Known Allergies (Unverified , 08/30/17) Objective Last 24 Hour Vital Signs Date Time Temp Pulse Resp B/P (MAP) Pulse Ox O2 Delivery O2 Flow Rate FiO2 09/02/17 07:47 97.3 56 18 136/69 97 Nasal Cannula 2.0 09/02/17 04:00 97.5 63 18 147/64 96 Nasal Cannula 2.0 09/02/17 00:00 97.7 57 18 160/71 97 Nasal Cannula 2.0 09/01/17 20:00 98.1 58 18 158/76 95 Nasal Cannula 2.0 09/01/17 11:56 98.7 51 20 152/66 96 Intake and Output 09/01/17 09/02/17 19:00 07:00 Intake Total 1210.0 ml 1220.0 ml Output Total 3400 ml Balance 1210.0 ml -2180.0 ml IV Total 1210.0 ml 1220.0 ml Output Urine Total 3400 ml General Appearance: no acute distress HEENT: normocephalic Respiratory/Chest: chest wall non-tender, lungs clear Cardiovascular: normal peripheral pulses, normal rate Abdomen: hypoactive bowel sounds Laboratory Tests 09/02/17 07:12: White Blood Count 12.1H, Red Blood Count 4.05L, Hemoglobin 13.3, Hematocrit 38.2 , Mean Corpuscular Volume 94, Mean Corpuscular Hemoglobin 32.9H, Mean Corpuscular Hemoglobin Concent 34.8, Red Cell Distribution Width 12.3, Platelet Count 263, Mean Platelet Volume 8.6, Neutrophils (%) (Auto) 72.9, Lymphocytes (% ) (Auto) 19.2L, Monocytes (%) (Auto) 7.2, Eosinophils (%) (Auto) 0.3, Basophils (%) (Auto) 0.4, Sodium Level 137, Potassium Level 3.8, Chloride Level 100, Carbon Dioxide Level 28, Anion Gap 9, Blood Urea Nitrogen 17, Creatinine 0.8, Estimat Glomerular Filtration Rate , Glucose Level 88, Calcium Level 8.6 Current Medications Medications (Trade) Dose Ordered Sig/Esther Route PRN Reason Start Time Stop Time Status Last Admin Dose Admin Diphenhydramine HCl (Benadryl) 12.5 mg Q6H PRN IVP Itching/Pruritis 08/31/17 03:00 09/30/17 02:59 Famotidine (Pepcid I.v.) 20 mg Q12HR IVP 08/31/17 09:00 09/30/17 08:59 09/02/17 09:04 Heparin Sodium (Porcine) (Heparin 5000 units/ml) 5,000 units EVERY 12 HOURS SUBQ 08/31/17 09:00 09/30/17 08:59 09/02/17 09:06 Hydromorphone HCl (Dilaudid) 0.5 mg Q3H PRN IVP Pain Score 1-3 08/31/17 03:00 09/07/17 02:59 Hydromorphone HCl (Dilaudid) 1 mg Q3H PRN IVP pain score 4-6 08/31/17 03:00 09/07/17 02:59 09/02/17 03:47 Hydromorphone HCl (Dilaudid) 2 mg Q3H PRN IVP pain score 7-10 08/31/17 03:00 09/07/17 02:59 Ketorolac Tromethamine (Toradol 30mg) 15 mg Q6H PRN IV For Pain 08/31/17 03:00 09/05/17 02:59 Lactated Ringer's 1,000 ml @ 100 mls/hr Q10H IV 08/31/17 08:30 09/30/17 02:59 09/02/17 09:12 Ondansetron HCl (Zofran) 4 mg Q6H PRN IVP Nausea & Vomiting 08/31/17 03:00 09/30/17 02:59 Piperacillin Sod/ Tazobactam Sod 3.375 gm/Sodium Chloride 110 ml @ 27.5 mls/hr Q8H IVPB 08/31/17 03:00 09/07/17 02:59 09/02/17 02:34 Carlyle Velazquez MD Sep 02, 2017 09:50
--- NOTE | 2017-09-02 15:19 | General Progress Note ---
Progress Note Progress Note Surgery: no acute events. doing well. no n/v/f/c. no flatus or BM yet. pain improved. ambulatory. afebrile, HD stable, labs improved. exam with incisional tenderness, not distended, soft, minimal bowel sounds. incision c/d/i Await return of bowel function ambulate and oob cont Abx cuevas for one more day given pelvic dissection Blake Farley Sep 02, 2017 15:19
[2017-09-02 16:00] VITALS: BP 150/83
[2017-09-02 20:00] VITALS: BP 134/80
[2017-09-03] MEDS: Piperacillin/Tazobactam 3.375 GM in NS 110 ML IVPB SCH ×3 (02:49→18:35)
[2017-09-03 04:00] VITALS: BP 171/75
[2017-09-03] MEDS: LR 1000ml 1,000 ML IV SCH ×2 (05:29→18:34)
[2017-09-03 05:44] LABS: BASOPHILS % (AUTO) 0.8 % (0.0-2.0); EOSINOPHILS % (AUTO) 2.4 % (0.0-3.0); HEMATOCRIT 38.4 % (37.0-47.0); MEAN CORPUSCULAR VOLUME 94 FL (80-99); NEUTROPHILS % (AUTO) 65.8 % (45.0-75.0); PLATELET COUNT 285 K/UL (150-450); RED BLOOD COUNT 4.08 M/UL (4.20-5.40); WHITE BLOOD COUNT 12.2 K/UL (4.8-10.8)
[2017-09-03 06:02] LABS: ALANINE AMINOTRANSFERASE 26 U/L (12-78); ALBUMIN 2.4 G/DL (3.4-5.0); ALBUMIN/GLOBULIN RATIO 0.6 (1.0-2.7); ALKALINE PHOSPHATASE 45 U/L (46-116); ANION GAP 7 mmol/L (5-15); ASPARTATE AMINO TRANSFERASE 32 U/L (15-37); BILIRUBIN,TOTAL 1.4 MG/DL (0.2-1.0); BLOOD UREA NITROGEN 18 mg/dL (7-18); CALCIUM 8.4 MG/DL (8.5-10.1); CARBON DIOXIDE 29 MMOL/L (21-32); CHLORIDE 102 MMOL/L (98-107); CREATININE 0.7 MG/DL (0.55-1.30); POTASSIUM 3.7 MMOL/L (3.5-5.1); SODIUM 138 MMOL/L (136-145)
[2017-09-03 06:07] LABS: BILIRUBIN,DIRECT 0.5 MG/DL (0.0-0.3)
[2017-09-03 07:52] VITALS: BP 160/74
[2017-09-03] MEDS: Heparin 5000 units/ml inj SUBQ SCH ×2 (08:55→21:32)
--- NOTE | 2017-09-03 09:10 | Pulmonology Progress Note ---
Assessment/Plan Assessment/Plan IMPRESSION: 1. Perforated sigmoid diverticulitis. 2. Status post laparotomy and sigmoid colon resection with anastomosis. 3. Hypertension. DISCUSSION: 1. Continue antibiotics. Zosyn. 2. Continue Pepcid and subcutaneous heparin. 3. Pain control. 4. Intravenous fluids. 5. I will continue to follow carefully along with general surgery. 6. Flowers care per surgery given pelvic dissection Subjective Interval Events: Surgery noted reviewed Constitutional: Reports: no symptoms HEENT: Repors: no symptoms Respiratory: Reports: no symptoms Cardiovascular: Reports: no symptoms Allergies: Coded Allergies: No Known Allergies (Unverified , 08/30/17) Objective Last 24 Hour Vital Signs Date Time Temp Pulse Resp B/P (MAP) Pulse Ox O2 Delivery O2 Flow Rate FiO2 09/03/17 07:52 98.5 66 18 160/74 96 Room Air 09/03/17 04:00 98.3 63 18 171/75 93 Room Air 09/02/17 21:04 98.1 09/02/17 20:00 98.4 64 18 134/80 93 Room Air 09/02/17 16:00 98.1 68 18 150/83 93 Room Air Intake and Output 09/02/17 09/03/17 19:00 07:00 Intake Total 1182.5 ml 650 ml Output Total 900 ml 700 ml Balance 282.5 ml -50 ml IV Total 1182.5 ml 650 ml Output Urine Total 900 ml 700 ml HEENT: normocephalic Respiratory/Chest: chest wall non-tender, lungs clear Cardiovascular: normal peripheral pulses, normal rate Abdomen: hypoactive bowel sounds Extremities: no cyanosis Laboratory Tests 09/03/17 05:15: White Blood Count 12.2H, Red Blood Count 4.08L, Hemoglobin 13.0, Hematocrit 38.4 , Mean Corpuscular Volume 94, Mean Corpuscular Hemoglobin 31.9H, Mean Corpuscular Hemoglobin Concent 33.9, Red Cell Distribution Width 12.0, Platelet Count 285, Mean Platelet Volume 8.1, Neutrophils (%) (Auto) 65.8, Lymphocytes (% ) (Auto) 24.0, Monocytes (%) (Auto) 7.0, Eosinophils (%) (Auto) 2.4, Basophils ( %) (Auto) 0.8, Sodium Level 138, Potassium Level 3.7, Chloride Level 102, Carbon Dioxide Level 29, Anion Gap 7, Blood Urea Nitrogen 18, Creatinine 0.7, Estimat Glomerular Filtration Rate , Glucose Level 70L, Calcium Level 8.4L, Total Bilirubin 1.4H, Direct Bilirubin 0.5H, Aspartate Amino Transf (AST/SGOT) 32, Alanine Aminotransferase (ALT/SGPT) 26, Alkaline Phosphatase 45L, Total Protein 6.7, Albumin 2.4L, Globulin 4.3, Albumin/Globulin Ratio 0.6L Current Medications Medications (Trade) Dose Ordered Sig/Esther Route PRN Reason Start Time Stop Time Status Last Admin Dose Admin Diphenhydramine HCl (Benadryl) 12.5 mg Q6H PRN IVP Itching/Pruritis 08/31/17 03:00 09/30/17 02:59 Famotidine (Pepcid I.v.) 20 mg Q12HR IVP 08/31/17 09:00 09/30/17 08:59 09/03/17 08:55 Heparin Sodium (Porcine) (Heparin 5000 units/ml) 5,000 units EVERY 12 HOURS SUBQ 08/31/17 09:00 09/30/17 08:59 09/03/17 08:55 Hydromorphone HCl (Dilaudid) 0.5 mg Q3H PRN IVP Pain Score 1-3 08/31/17 03:00 09/07/17 02:59 Hydromorphone HCl (Dilaudid) 1 mg Q3H PRN IVP pain score 4-6 08/31/17 03:00 09/07/17 02:59 09/02/17 20:34 Hydromorphone HCl (Dilaudid) 2 mg Q3H PRN IVP pain score 7-10 08/31/17 03:00 09/07/17 02:59 Ketorolac Tromethamine (Toradol 30mg) 15 mg Q6H PRN IV For Pain 08/31/17 03:00 09/05/17 02:59 09/02/17 18:29 Lactated Ringer's 1,000 ml @ 100 mls/hr Q10H IV 08/31/17 08:30 09/30/17 02:59 09/03/17 05:29 Ondansetron HCl (Zofran) 4 mg Q6H PRN IVP Nausea & Vomiting 08/31/17 03:00 09/30/17 02:59 Piperacillin Sod/ Tazobactam Sod 3.375 gm/Sodium Chloride 110 ml @ 27.5 mls/hr Q8H IVPB 08/31/17 03:00 09/07/17 02:59 09/03/17 02:49 Carlyle Velazquez MD Sep 03, 2017 09:10
[2017-09-03 11:49] VITALS: BP 141/63
--- NOTE | 2017-09-03 12:09 | General Progress Note ---
Progress Note Progress Note Surgery: doing well. minimal pain. no n/v/f/c. comfortable. no consistent flatus. no BM yet. hungry afebrile, HD stable, labs improving. exam benign. abd soft, nt/nd, bs decreased, incision c/d/i -d/c cuevas -okay for ice chips and gum chewing -cont abx -cont fluids awaiting return of bowel function Blake Farley Sep 03, 2017 12:09
[2017-09-03 16:05] VITALS: BP 166/70
[2017-09-03] MEDS: Losartan 50mg tab ORAL SCH (18:34)
[2017-09-03 20:00] VITALS: BP 149/72
[2017-09-03] MEDS: HYDROmorphone 1mg/ml Carpuject IVP PRN (21:29)
[2017-09-04] MEDS: LR 1000ml 1,000 ML IV SCH ×2 (02:47→10:25)
[2017-09-04] MEDS: Piperacillin/Tazobactam 3.375 GM in NS 110 ML IVPB SCH ×3 (03:20→20:08)
[2017-09-04 04:00] VITALS: BP 147/71
[2017-09-04 06:34] LABS: BASOPHILS % (AUTO) 0.4 % (0.0-2.0); HEMATOCRIT 39.5 % (37.0-47.0); HEMOGLOBIN 13.4 G/DL (12.0-16.0); LYMPHOCYTES % (AUTO) 24.3 % (20.0-45.0); MEAN CORPUSCULAR VOLUME 94 FL (80-99); MONOCYTES % (AUTO) 6.2 % (1.0-10.0); NEUTROPHILS % (AUTO) 66.1 % (45.0-75.0); PLATELET COUNT 307 K/UL (150-450); RED BLOOD COUNT 4.19 M/UL (4.20-5.40); RED CELL DISTRIBUTION WIDTH 12.1 % (11.6-14.8); WHITE BLOOD COUNT 12.6 K/UL (4.8-10.8)
[2017-09-04 06:52] LABS: ANION GAP 11 mmol/L (5-15); BLOOD UREA NITROGEN 13 mg/dL (7-18); CALCIUM 8.7 MG/DL (8.5-10.1); CARBON DIOXIDE 26 MMOL/L (21-32); CHLORIDE 101 MMOL/L (98-107); CREATININE 0.6 MG/DL (0.55-1.30); POTASSIUM 3.6 MMOL/L (3.5-5.1); SODIUM 137 MMOL/L (136-145)
[2017-09-04 08:00] VITALS: BP 153/64
[2017-09-04] MEDS: Heparin 5000 units/ml inj SUBQ SCH ×2 (09:13→21:39)
[2017-09-04] MEDS: Losartan 50mg tab ORAL SCH (09:14)
--- NOTE | 2017-09-04 10:30 | Pulmonology Progress Note ---
Assessment/Plan Assessment/Plan IMPRESSION: 1. Perforated sigmoid diverticulitis. 2. Status post laparotomy and sigmoid colon resection with anastomosis. 3. Hypertension. DISCUSSION: 1. Continue antibiotics. 2. Continue Pepcid and subcutaneous heparin. 3. Pain control. 4. Intravenous fluids. 5. I will continue to follow carefully along with general surgery. 6. Diet per surgery Subjective Interval Events: Improving ; on ice chips Constitutional: Reports: no symptoms HEENT: Repors: no symptoms Respiratory: Reports: no symptoms Cardiovascular: Reports: no symptoms Allergies: Coded Allergies: No Known Allergies (Unverified , 08/30/17) Objective Last 24 Hour Vital Signs Date Time Temp Pulse Resp B/P (MAP) Pulse Ox O2 Delivery O2 Flow Rate FiO2 09/04/17 09:14 147/71 09/04/17 09:14 68 147/71 09/04/17 08:00 98.4 59 19 153/64 95 Room Air 09/04/17 04:00 98.1 68 17 147/71 96 Room Air 09/03/17 20:00 98.4 65 19 149/72 96 Room Air 09/03/17 18:34 166/70 09/03/17 18:34 61 166/70 09/03/17 16:05 98.5 59 19 166/70 96 Room Air 09/03/17 11:49 98.4 60 18 141/63 98 Room Air Intake and Output 09/03/17 09/04/17 19:00 07:00 Intake Total 100 ml 900 ml Output Total 850 ml 800 ml Balance -750 ml 100 ml IV Total 100 ml 900 ml Output Urine Total 850 ml 800 ml # Voids 2 2 General Appearance: no acute distress HEENT: normocephalic Respiratory/Chest: chest wall non-tender Cardiovascular: normal peripheral pulses Abdomen: hypoactive bowel sounds Extremities: no cyanosis Laboratory Tests 09/04/17 05:30: White Blood Count 12.6H, Red Blood Count 4.19L, Hemoglobin 13.4, Hematocrit 39.5 , Mean Corpuscular Volume 94, Mean Corpuscular Hemoglobin 31.9H, Mean Corpuscular Hemoglobin Concent 33.9, Red Cell Distribution Width 12.1, Platelet Count 307, Mean Platelet Volume 7.6, Neutrophils (%) (Auto) 66.1, Lymphocytes (% ) (Auto) 24.3, Monocytes (%) (Auto) 6.2, Eosinophils (%) (Auto) 3.0, Basophils ( %) (Auto) 0.4, Sodium Level 137, Potassium Level 3.6, Chloride Level 101, Carbon Dioxide Level 26, Anion Gap 11, Blood Urea Nitrogen 13, Creatinine 0.6, Estimat Glomerular Filtration Rate , Glucose Level 66L, Calcium Level 8.7 Current Medications Medications (Trade) Dose Ordered Sig/Esther Route PRN Reason Start Time Stop Time Status Last Admin Dose Admin Amlodipine Besylate (Norvasc) 5 mg DAILY ORAL 09/03/17 18:00 10/03/17 17:59 09/04/17 09:14 Diphenhydramine HCl (Benadryl) 12.5 mg Q6H PRN IVP Itching/Pruritis 08/31/17 03:00 09/30/17 02:59 Famotidine (Pepcid I.v.) 20 mg Q12HR IVP 08/31/17 09:00 09/30/17 08:59 09/04/17 10:23 Heparin Sodium (Porcine) (Heparin 5000 units/ml) 5,000 units EVERY 12 HOURS SUBQ 08/31/17 09:00 09/30/17 08:59 09/04/17 09:13 Hydromorphone HCl (Dilaudid) 0.5 mg Q3H PRN IVP Pain Score 1-3 08/31/17 03:00 09/07/17 02:59 Hydromorphone HCl (Dilaudid) 1 mg Q3H PRN IVP pain score 4-6 08/31/17 03:00 09/07/17 02:59 09/03/17 21:29 Hydromorphone HCl (Dilaudid) 2 mg Q3H PRN IVP pain score 7-10 08/31/17 03:00 09/07/17 02:59 Ketorolac Tromethamine (Toradol 30mg) 15 mg Q6H PRN IV For Pain 08/31/17 03:00 09/05/17 02:59 09/02/17 18:29 Lactated Ringer's 1,000 ml @ 100 mls/hr Q10H IV 08/31/17 08:30 09/30/17 02:59 09/04/17 10:25 Losartan Potassium (Cozaar) 50 mg DAILY ORAL 09/03/17 18:00 10/03/17 17:59 09/04/17 09:14 Ondansetron HCl (Zofran) 4 mg Q6H PRN IVP Nausea & Vomiting 08/31/17 03:00 09/30/17 02:59 Piperacillin Sod/ Tazobactam Sod 3.375 gm/Sodium Chloride 110 ml @ 27.5 mls/hr Q8H IVPB 08/31/17 03:00 09/07/17 02:59 09/04/17 10:27 Carlyle Velazquez MD Sep 04, 2017 10:30
[2017-09-04 12:05] VITALS: BP 135/79
--- NOTE | 2017-09-04 14:23 | General Progress Note ---
Progress Note Progress Note Surgery: doing well. no acute events. comfortable. mild flatus but not consistent. no n/v/f/c. no bm. abd soft, nt/nd, bs hypoactive afebrile, HD stable, labs reviewed on abx still with leukocytosis of 12k. -no ready for oral diet yet. only POD #4. will need to really wait for return of bowel function for her -NPO -IV fluids -IV Abx -ambulate and OOB Blake Farley Sep 04, 2017 14:23
[2017-09-04 16:00] VITALS: BP 124/69
[2017-09-04 20:14] VITALS: BP 144/66
[2017-09-05] VITALS (7 sets, daily range): BP systolic 135–151; BP diastolic 61–66
[2017-09-05] MEDS: Piperacillin/Tazobactam 3.375 GM in NS 110 ML IVPB SCH ×3 (03:05→19:09)
[2017-09-05 07:54] LABS: HEMATOCRIT 36.7 % (37.0-47.0); HEMOGLOBIN 12.5 G/DL (12.0-16.0); LYMPHOCYTES % (AUTO) 21.8 % (20.0-45.0); MEAN CORPUSCULAR VOLUME 94 FL (80-99); NEUTROPHILS % (AUTO) 69.6 % (45.0-75.0); PLATELET COUNT 315 K/UL (150-450); RED BLOOD COUNT 3.91 M/UL (4.20-5.40); RED CELL DISTRIBUTION WIDTH 12.2 % (11.6-14.8); WHITE BLOOD COUNT 12.4 K/UL (4.8-10.8)
[2017-09-05 07:55] LABS: BASOPHILS % (AUTO) 0.3 % (0.0-2.0); EOSINOPHILS % (AUTO) 2.4 % (0.0-3.0); MONOCYTES % (AUTO) 5.9 % (1.0-10.0)
[2017-09-05 08:01] LABS: ALANINE AMINOTRANSFERASE 28 U/L (12-78); ANION GAP 8 mmol/L (5-15); ASPARTATE AMINO TRANSFERASE 32 U/L (15-37); BILIRUBIN,TOTAL 1.5 MG/DL (0.2-1.0); BLOOD UREA NITROGEN 12 mg/dL (7-18); CALCIUM 8.3 MG/DL (8.5-10.1); CARBON DIOXIDE 28 MMOL/L (21-32); CHLORIDE 103 MMOL/L (98-107); CREATININE 0.5 MG/DL (0.55-1.30); POTASSIUM 3.5 MMOL/L (3.5-5.1); SODIUM 138 MMOL/L (136-145)
[2017-09-05 08:02] LABS: ALBUMIN 2.4 G/DL (3.4-5.0); ALBUMIN/GLOBULIN RATIO 0.6 (1.0-2.7); ALKALINE PHOSPHATASE 48 U/L (46-116); BILIRUBIN,DIRECT 0.4 MG/DL (0.0-0.3)
[2017-09-05] MEDS: Losartan 50mg tab ORAL SCH (08:40)
[2017-09-05] MEDS: Heparin 5000 units/ml inj SUBQ SCH ×2 (08:43→20:44)
--- NOTE | 2017-09-05 09:43 | Pulmonology Progress Note ---
Assessment/Plan Assessment/Plan IMPRESSION: 1. Perforated sigmoid diverticulitis. 2. Status post laparotomy and sigmoid colon resection with anastomosis. 3. Hypertension. DISCUSSION: 1. Continue antibiotics. 2. Continue Pepcid and subcutaneous heparin. 3. Pain control. 4. Intravenous fluids. 5. I will continue to follow carefully along with general surgery. 6. Diet per surgery Subjective Interval Events: Mild leucocytosis Constitutional: Reports: no symptoms HEENT: Repors: no symptoms Respiratory: Reports: no symptoms Cardiovascular: Reports: no symptoms Allergies: Coded Allergies: No Known Allergies (Unverified , 08/30/17) Objective Last 24 Hour Vital Signs Date Time Temp Pulse Resp B/P (MAP) Pulse Ox O2 Delivery O2 Flow Rate FiO2 09/05/17 08:40 149/63 09/05/17 08:40 64 149/63 09/05/17 08:12 97.7 64 21 149/63 95 09/05/17 04:04 Room Air 09/05/17 04:03 97.7 60 18 137/63 95 09/05/17 00:08 Room Air 09/05/17 00:07 98.2 60 18 135/61 96 09/04/17 20:15 Room Air 09/04/17 20:14 97.9 64 17 144/66 96 09/04/17 16:00 98.5 79 18 124/69 95 Room Air 09/04/17 12:05 99.2 78 18 135/79 100 Room Air Intake and Output 09/04/17 09/05/17 19:00 07:00 Intake Total 625.0 ml Output Total 1050 ml Balance -1050 ml 625.0 ml Intake Oral 360 ml IV Total 265.0 ml Output Urine Total 800 ml Stool Total 250 ml # Voids 3 2 # Bowel Movements 1 General Appearance: no acute distress HEENT: normocephalic Respiratory/Chest: chest wall non-tender, lungs clear Cardiovascular: normal peripheral pulses Abdomen: hypoactive bowel sounds Laboratory Tests 09/05/17 05:15: White Blood Count 12.4H, Corrected White Blood Count , Red Blood Count 3.91L, Hemoglobin 12.5, Hematocrit 36.7L, Mean Corpuscular Volume 94, Mean Corpuscular Hemoglobin 31.9H, Mean Corpuscular Hemoglobin Concent 33.9, Red Cell Distribution Width 12.2, Platelet Count 315, Mean Platelet Volume 7.5, Neutrophils (%) (Auto) 69.6, Lymphocytes (%) (Auto) 21.8, Monocytes (%) (Auto) 5.9, Eosinophils (%) (Auto) 2.4, Basophils (%) (Auto) 0.3, Sodium Level 138, Potassium Level 3.5, Chloride Level 103, Carbon Dioxide Level 28, Anion Gap 8, Blood Urea Nitrogen 12, Creatinine 0.5L, Estimat Glomerular Filtration Rate , Glucose Level 95, Calcium Level 8.3L, Total Bilirubin 1.5H, Direct Bilirubin 0.4H, Aspartate Amino Transf (AST/SGOT) 32, Alanine Aminotransferase (ALT/SGPT) 28, Alkaline Phosphatase 48, Total Protein 6.5, Albumin 2.4L, Globulin 4.1, Albumin/Globulin Ratio 0.6L Current Medications Medications (Trade) Dose Ordered Sig/Esther Route PRN Reason Start Time Stop Time Status Last Admin Dose Admin Amlodipine Besylate (Norvasc) 5 mg DAILY ORAL 09/03/17 18:00 10/03/17 17:59 09/05/17 08:40 Diphenhydramine HCl (Benadryl) 12.5 mg Q6H PRN IVP Itching/Pruritis 08/31/17 03:00 09/30/17 02:59 Famotidine (Pepcid I.v.) 20 mg Q12HR IVP 08/31/17 09:00 09/30/17 08:59 09/05/17 08:40 Heparin Sodium (Porcine) (Heparin 5000 units/ml) 5,000 units EVERY 12 HOURS SUBQ 08/31/17 09:00 09/30/17 08:59 09/05/17 08:43 Hydromorphone HCl (Dilaudid) 0.5 mg Q3H PRN IVP Pain Score 1-3 08/31/17 03:00 09/07/17 02:59 Hydromorphone HCl (Dilaudid) 1 mg Q3H PRN IVP pain score 4-6 08/31/17 03:00 09/07/17 02:59 09/03/17 21:29 Hydromorphone HCl (Dilaudid) 2 mg Q3H PRN IVP pain score 7-10 08/31/17 03:00 09/07/17 02:59 Lactated Ringer's 1,000 ml @ 50 mls/hr Q20H IV 09/05/17 15:31 10/05/17 15:30 09/05/17 03:05 Losartan Potassium (Cozaar) 50 mg DAILY ORAL 09/03/17 18:00 10/03/17 17:59 09/05/17 08:40 Ondansetron HCl (Zofran) 4 mg Q6H PRN IVP Nausea & Vomiting 08/31/17 03:00 09/30/17 02:59 Piperacillin Sod/ Tazobactam Sod 3.375 gm/Sodium Chloride 110 ml @ 27.5 mls/hr Q8H IVPB 08/31/17 03:00 09/07/17 02:59 09/05/17 03:05 Carlyle Velazquez MD Sep 05, 2017 09:43
[2017-09-05] MEDS ORDERED: LR 1000ml 1,000 ML IV SCH (15:31)
--- NOTE | 2017-09-05 16:25 | General Progress Note ---
Progress Note Progress Note Surgery: doing well. no n/v/f/c. +flatus +BM. tolerating diet. no pain. afebrile, HD stable, still with mild leukocytosis. exam benign but lower portion of incision with some erythema. with patients permission lower portion of wound ruthie removed and opened. small serosang fluid collection evacuated. no pus or signs of active infection noted. packing and dressings applied. -advance diet as tolerated -d/c IV fluids -packing and dressings BID to lower portion of wound. -possible d/c in the next day or two. Blake Farley Sep 05, 2017 16:25
[2017-09-05] MEDS: Docusate 100mg cap ORAL SCH (17:33)
[2017-09-05] MEDS: Norco 5mg/325mg tab ORAL PRN ×2 (17:34→23:45)
[2017-09-06] VITALS: BP 146/63
[2017-09-06] MEDS: Piperacillin/Tazobactam 3.375 GM in NS 110 ML IVPB SCH ×3 (03:04→18:48)
[2017-09-06 04:00] VITALS: BP 154/69
[2017-09-06 07:34] LABS: BASOPHILS % (AUTO) 0.6 % (0.0-2.0); EOSINOPHILS % (AUTO) 2.2 % (0.0-3.0); HEMOGLOBIN 12.8 G/DL (12.0-16.0); LYMPHOCYTES % (AUTO) 25.9 % (20.0-45.0); MEAN CORPUSCULAR VOLUME 94 FL (80-99); NEUTROPHILS % (AUTO) 64.3 % (45.0-75.0); PLATELET COUNT 330 K/UL (150-450); RED BLOOD COUNT 4.05 M/UL (4.20-5.40); RED CELL DISTRIBUTION WIDTH 12.2 % (11.6-14.8); WHITE BLOOD COUNT 11.7 K/UL (4.8-10.8)
[2017-09-06 08:00] VITALS: BP 150/76
--- NOTE | 2017-09-06 08:14 | Pulmonology Progress Note ---
Assessment/Plan Assessment/Plan IMPRESSION: 1. Perforated sigmoid diverticulitis. 2. Status post laparotomy and sigmoid colon resection with anastomosis. 3. Hypertension. DISCUSSION: 1. Continue antibiotics. 2. Continue Pepcid and subcutaneous heparin. 3. Pain control. 4. Intravenous fluids. 5. I will continue to follow carefully along with general surgery. 6. Diet per surgery Subjective Interval Events: On diet; labs reviewed Constitutional: Reports: no symptoms HEENT: Repors: no symptoms Respiratory: Reports: no symptoms Cardiovascular: Reports: no symptoms Gastrointestinal/Abdominal: Reports: no symptoms Genitourinary: Reports: no symptoms Allergies: Coded Allergies: No Known Allergies (Unverified , 08/30/17) Objective Last 24 Hour Vital Signs Date Time Temp Pulse Resp B/P (MAP) Pulse Ox O2 Delivery O2 Flow Rate FiO2 09/06/17 04:01 Room Air 09/06/17 04:00 98.0 61 18 154/69 95 09/06/17 00:01 Room Air 09/06/17 00:00 98.2 58 18 146/63 94 09/05/17 20:01 Room Air 09/05/17 20:00 98.3 59 18 151/66 94 09/05/17 16:18 98.2 64 20 146/66 95 Room Air 09/05/17 11:59 98.4 62 20 135/64 93 Room Air 09/05/17 09:58 97.7 64 21 149/63 95 Room Air 09/05/17 08:40 149/63 09/05/17 08:40 64 149/63 Intake and Output 09/05/17 09/06/17 19:00 07:00 Intake Total 240 ml 240 ml Balance 240 ml 240 ml Intake Oral 240 ml 240 ml # Voids 3 2 General Appearance: no acute distress HEENT: normocephalic Respiratory/Chest: chest wall non-tender, lungs clear Cardiovascular: normal peripheral pulses Abdomen: normal bowel sounds Laboratory Tests 09/06/17 06:30: White Blood Count 11.7H, Red Blood Count 4.05L, Hemoglobin 12.8, Hematocrit 38.0 , Mean Corpuscular Volume 94, Mean Corpuscular Hemoglobin 31.7H, Mean Corpuscular Hemoglobin Concent 33.9, Red Cell Distribution Width 12.2, Platelet Count 330, Mean Platelet Volume 7.6, Neutrophils (%) (Auto) 64.3, Lymphocytes (% ) (Auto) 25.9, Monocytes (%) (Auto) 7.0, Eosinophils (%) (Auto) 2.2, Basophils ( %) (Auto) 0.6 Current Medications Medications (Trade) Dose Ordered Sig/Esther Route PRN Reason Start Time Stop Time Status Last Admin Dose Admin Acetaminophen/ Hydrocodone Bitart ([place] 5/325) 1 tab Q4H PRN ORAL Moderate Pain (Pain Scale 4-6) 09/05/17 16:30 09/12/17 16:29 09/05/17 23:45 Amlodipine Besylate (Norvasc) 5 mg DAILY ORAL 09/03/17 18:00 10/03/17 17:59 09/05/17 08:40 Diphenhydramine HCl (Benadryl) 12.5 mg Q6H PRN IVP Itching/Pruritis 08/31/17 03:00 09/30/17 02:59 Docusate Sodium (Colace) 100 mg TWICE A DAY ORAL 09/05/17 18:00 10/05/17 17:59 09/05/17 17:33 Heparin Sodium (Porcine) (Heparin 5000 units/ml) 5,000 units EVERY 12 HOURS SUBQ 08/31/17 09:00 09/30/17 08:59 09/05/17 20:44 Ibuprofen (Motrin) 600 mg Q6H PRN ORAL Mild Pain (Pain Scale 1-3) 09/05/17 16:30 10/05/17 16:29 Losartan Potassium (Cozaar) 50 mg DAILY ORAL 09/03/17 18:00 10/03/17 17:59 09/05/17 08:40 Ondansetron HCl (Zofran) 4 mg Q6H PRN IVP Nausea & Vomiting 08/31/17 03:00 09/30/17 02:59 Piperacillin Sod/ Tazobactam Sod 3.375 gm/Sodium Chloride 110 ml @ 27.5 mls/hr Q8H IVPB 08/31/17 03:00 09/07/17 02:59 09/06/17 03:04 Carlyle Velazquez MD Sep 06, 2017 08:14
[2017-09-06] MEDS: Docusate 100mg cap ORAL SCH ×2 (09:25→18:47)
[2017-09-06] MEDS: Losartan 50mg tab ORAL SCH (09:25)
[2017-09-06] MEDS: Heparin 5000 units/ml inj SUBQ SCH ×2 (09:27→21:15)
--- NOTE | 2017-09-06 09:47 | General Progress Note ---
Progress Note Progress Note Surgery: doing well. no acute events. comfortable. no n/v/f/c. pain improved. passing flatus. tolerating diet. ambulatory abd soft, nt/nd, bs+. incision c/d/i/. inferior aspect of incision opened yesterday to drain serosang fluid collection. no signs of infection -diet as tolerated -packing and dressings to inferior portion of wound BID and PRN -d/c planning for tomorrow -AM CBC tomorrow -will need to teach family wound care. -can follow up with me in 1 week for wound check. Blake Farley Sep 06, 2017 09:47
[2017-09-06 12:00] VITALS: BP 121/59
[2017-09-06 16:00] VITALS: BP 121/67
[2017-09-06 20:00] VITALS: BP 126/71
[2017-09-07 00:38] VITALS: BP 149/67
[2017-09-07] MEDS: Piperacillin/Tazobactam 3.375 GM in NS 110 ML IVPB SCH ×2 (03:11→09:11)
[2017-09-07] MEDS: Norco 5mg/325mg tab ORAL PRN (03:25)
[2017-09-07 04:00] VITALS: BP 140/70
[2017-09-07 08:00] VITALS: BP 135/78
[2017-09-07 08:11] LABS: BASOPHILS % (AUTO) 0.3 % (0.0-2.0); EOSINOPHILS % (AUTO) 1.7 % (0.0-3.0); HEMATOCRIT 38.9 % (37.0-47.0); LYMPHOCYTES % (AUTO) 27.3 % (20.0-45.0); MEAN CORPUSCULAR VOLUME 94 FL (80-99); MONOCYTES % (AUTO) 4.9 % (1.0-10.0); NEUTROPHILS % (AUTO) 65.8 % (45.0-75.0); PLATELET COUNT 340 K/UL (150-450); RED BLOOD COUNT 4.13 M/UL (4.20-5.40); RED CELL DISTRIBUTION WIDTH 12.4 % (11.6-14.8); WHITE BLOOD COUNT 11.9 K/UL (4.8-10.8)
--- NOTE | 2017-09-07 08:32 | Pulmonology Progress Note ---
Assessment/Plan Assessment/Plan IMPRESSION: 1. Perforated sigmoid diverticulitis. 2. Status post laparotomy and sigmoid colon resection with anastomosis. 3. Hypertension. DISCUSSION: 1. Continue antibiotics. 2. Continue Pepcid and subcutaneous heparin. 3. Pain control. 4. Intravenous fluids. 5. I will continue to follow carefully along with general surgery. 6. Diet per surgery Subjective Interval Events: None Constitutional: Reports: no symptoms HEENT: Repors: no symptoms Respiratory: Reports: no symptoms Cardiovascular: Reports: no symptoms Gastrointestinal/Abdominal: Reports: no symptoms Allergies: Coded Allergies: No Known Allergies (Unverified , 08/30/17) Objective Last 24 Hour Vital Signs Date Time Temp Pulse Resp B/P (MAP) Pulse Ox O2 Delivery O2 Flow Rate FiO2 09/07/17 04:00 98.4 57 16 140/70 96 Room Air 09/07/17 00:38 98.6 59 17 149/67 97 Room Air 09/06/17 20:00 98.4 67 17 126/71 96 Room Air 09/06/17 16:00 97.7 59 19 121/67 98 09/06/17 12:00 98.0 64 17 121/59 97 09/06/17 09:25 150/76 09/06/17 09:25 62 150/76 Intake and Output 09/06/17 09/07/17 19:00 07:00 Intake Total 550 ml 720.0 ml Balance 550 ml 720.0 ml Intake Oral 550 ml 500 ml IV Total 220.0 ml # Voids 2 4 General Appearance: no acute distress HEENT: normocephalic Respiratory/Chest: chest wall non-tender, lungs clear Cardiovascular: normal peripheral pulses, normal rate Abdomen: normal bowel sounds, soft, non tender Laboratory Tests 09/07/17 06:20: White Blood Count 11.9H, Red Blood Count 4.13L, Hemoglobin 13.0, Hematocrit 38.9 , Mean Corpuscular Volume 94, Mean Corpuscular Hemoglobin 31.4H, Mean Corpuscular Hemoglobin Concent 33.3, Red Cell Distribution Width 12.4, Platelet Count 340, Mean Platelet Volume 7.3, Neutrophils (%) (Auto) 65.8, Lymphocytes (% ) (Auto) 27.3, Monocytes (%) (Auto) 4.9, Eosinophils (%) (Auto) 1.7, Basophils ( %) (Auto) 0.3 Current Medications Medications (Trade) Dose Ordered Sig/Etsher Route PRN Reason Start Time Stop Time Status Last Admin Dose Admin Acetaminophen/ Hydrocodone Bitart ([place] 5/325) 1 tab Q4H PRN ORAL Moderate Pain (Pain Scale 4-6) 09/05/17 16:30 09/12/17 16:29 09/07/17 03:25 Amlodipine Besylate (Norvasc) 5 mg DAILY ORAL 09/03/17 18:00 10/03/17 17:59 09/06/17 09:25 Diphenhydramine HCl (Benadryl) 12.5 mg Q6H PRN IVP Itching/Pruritis 08/31/17 03:00 09/30/17 02:59 Docusate Sodium (Colace) 100 mg TWICE A DAY ORAL 09/05/17 18:00 10/05/17 17:59 09/06/17 18:47 Heparin Sodium (Porcine) (Heparin 5000 units/ml) 5,000 units EVERY 12 HOURS SUBQ 08/31/17 09:00 09/30/17 08:59 09/06/17 21:15 Ibuprofen (Motrin) 600 mg Q6H PRN ORAL Mild Pain (Pain Scale 1-3) 09/05/17 16:30 10/05/17 16:29 Losartan Potassium (Cozaar) 50 mg DAILY ORAL 09/03/17 18:00 10/03/17 17:59 09/06/17 09:25 Ondansetron HCl (Zofran) 4 mg Q6H PRN IVP Nausea & Vomiting 08/31/17 03:00 09/30/17 02:59 Piperacillin Sod/ Tazobactam Sod 3.375 gm/Sodium Chloride 110 ml @ 27.5 mls/hr Q8H IVPB 08/31/17 03:00 09/11/17 02:59 09/07/17 03:11 Carlyle Velazquez MD Sep 07, 2017 08:32
[2017-09-07] MEDS: Docusate 100mg cap ORAL SCH (09:11)
[2017-09-07] MEDS: Losartan 50mg tab ORAL SCH (09:12)
[2017-09-07] MEDS: Heparin 5000 units/ml inj SUBQ SCH (09:12)
[2017-09-07 12:00] VITALS: BP 122/60
[2017-09-07 16:00] VITALS: BP 132/61
--- NOTE | 2017-09-10 12:56 | Discharge Summary ---
Discharge Summary Hospital Course Date of Admission Aug 30, 2017 at 22:36 Date of Discharge Sep 07, 2017 at 17:10 Admitting Diagnosis perforated viscous HPI Alisia Owusu is a 76 year old female who was admitted on Aug 30, 2017 at 22: 36 for Perforated Viscous Hospital Course dc summary #[id number] Discharge Medications Continued Medications: Amlodipine Besylate (Norvasc) 5 Mg Tablet 5 MG ORAL DAILY, TAB Aspirin* (Aspir 81*) 81 Mg Tablet.dr 81 MG ORAL DAILY, TAB Cetirizine Hcl* (Zyrtec*) 10 Mg Tablet 10 MG ORAL DAILY PRN for ALLERGIES, TAB 0 Refills Clarithromycin* (Clarithromycin*) 500 Mg Tablet 500 MG PO DAILY for 7 Days, TAB Take daily for 7 days Losartan Potassium* (Losartan Potassium*) 50 Mg Tablet 100 MG ORAL DAILY for For High Blood Pressure, TAB Discharge Condition Upon Discharge: stable Discharge Disposition Patient was discharged to Home with Home Health(06) Discharge Diagnoses: Discharge Instructions Discharge Instructions Special Instructions I have been assigned to complete a D/C Summary on this account. I was not involved in the patient management Catrachita Flynn NP ([place]) Sep 10, 2017 12:56
--- NOTE | 2017-09-10 17:15 | Discharge Summary 2 SIG ---
DATE OF ADMISSION: 08/30/2017 DATE OF DISCHARGE: 09/07/2017 REASON FOR ADMISSION: 76-year-old female with a history of hypertension, osteoporosis, and degenerative osteoarthritis presented to emergency room with complaint of abdominal pain. Laboratory workup revealed leukocytosis. Vital signs revealed low-grade fever and high blood pressure. CT of the abdomen and pelvis revealed perforated abdominal viscus. Surgery consult was emergently obtained, and the patient was taken for surgery. ADMITTING DIAGNOSIS: Perforated abdominal viscus. HOSPITAL COURSE: The patient admitted. The patient emergently was taken to surgery. The patient subsequently undergone exploratory laparotomy with sigmoid colon resection and primary anastomosis. The patient found to have perforated sigmoid diverticulitis. Course of recovery was uneventful. The patient initially kept NPO with IV fluids. Surgeon closely followed. The patient was on empiric antibiotics. Pain management was addressed. Wound care was provided. When bowel function return, the patient slowly started on clear liquid diet and was advanced as tolerated. Antiemetics were on board as needed. The patient was able to tolerate diet. The patient voided without difficulties. DVT prophylaxis provided. The patient was able to walk with physical and occupational therapists. Blood pressure was managed with current medication regimen and remained stable. The patient was stable for discharge home with home health services. FINAL DIAGNOSES: 1. Perforated sigmoid diverticulitis. 2. Status post exploratory laparotomy with sigmoid colon resection and prior anastomosis. 3. Hypertension. DISCHARGE MEDICATIONS: See medication reconciliation list. DISCHARGE INSTRUCTIONS: The patient discharged home with home health services. Carlyle Velazquez M.D. I have been assigned to dictate discharge summary on this account and I was not involved in the patient's management. Catrachita Ramirezboris) N.PTrip DR: GABRIELLE JOB#: [id number] CC: LINDA
== END 2017-09-07 17:10 | disposition home health service (06) | DRG 221 ==
LOC: EMR 17:58 → EDBEDREQ 20:57 → SUR 22:35 → 3E 22:36 → UNDOADMIN 08-31 05:12 → 3E 08-31 05:12 → SDSOVERFLO 08-31 12:22 → 3E 08-31 12:22
PROC: 0DBN0ZZ Excision of Sigmoid Colon, Open Approach (ICD-10-PCS; principal; 2017-08-30 23:00)
DX: K57.20 Diverticulitis of large intestine with perforation and abscess without bleeding (principal); I10 Essential (primary) hypertension; M81.0 Age-related osteoporosis without current pathological fracture; M19.90 Unspecified osteoarthritis, unspecified site
CPT/HCPCS: 36415; 71045; 74177; 80048; 80053; 81003; 82248; 83605; 83690; 83735; 84100; 84484; 85007; 85025; 85610; 85730; 86850; 86900; 86901; 93005; 94003; 94150; J2250; J2405; J2710

== ENCOUNTER 2017-09-12 15:54 | Emergency (ER) | payer MEDICAID, OTHER ==
[~2017-09-12] VITALS: Ht 160 cm; Wt 68.0 kg
[~2017-09-12 15:54] MED LIST: ASPIR 8181 MG ORAL; CLARITHROMYCIN500 MG PO; LOSARTAN POTASS50 MG ORAL; NORVASC5 MG ORAL; ZYRTEC10 MG ORAL
[2017-09-12 16:00] VITALS: BP 141/52
--- NOTE | 2017-09-12 16:38 | Consultation ---
History of Present Illness General Date patient seen: Sep 12, 2017 Chief Complaint: Abdominal Pain Reason for Consultation: abdominal pain Present Illness HPI 76 year old female well known to me. recently discharged after episode of perforated diverticulitis requiring exploratory laparotomy with sigmoid resection and primary anastomosis. upon discharge was afebrile, HD stable, labs okay, exam benign, ambulatory, passing flatus, having normal BM's. has been doing well post op but presented today with worsening abdominal pain. states cramping RLQ pain and lower abdominal pain without cramping. no n/v/f/ c. flatus +. has not had BM in 3 days. otherwise well Allergies: Coded Allergies: No Known Allergies (Unverified , 08/30/17) Medication History Scheduled Amlodipine Besylate (Norvasc), 5 MG ORAL DAILY, (Reported) Aspirin* (Aspir 81*), 81 MG ORAL DAILY, (Reported) Clarithromycin* (Clarithromycin*), 500 MG PO DAILY, (Reported) Losartan Potassium* (Losartan Potassium*), 100 MG ORAL DAILY, (Reported) Scheduled PRN Cetirizine Hcl* (Zyrtec*), 10 MG ORAL DAILY PRN for ALLERGIES, (Reported) Patient History History Provided By: Patient, Family Member Healthcare decision maker Resuscitation status Advanced Directive on File Past Medical/Surgical History Past Medical/Surgical History: (1) Abdominal pain (2) Pneumoperitoneum (3) Acute abdomen (4) Arthritis (5) Peritonitis (6) HTN (hypertension) (7) Age related osteoporosis (8) Perforated sigmoid colon Review of Systems Constitutional: Denies: no symptoms, see HPI, chills, sweats, fever, malaise, weakness, other Eye: Denies: no symptoms, see HPI, eye pain, blurred vision, tearing, double vision, nose pain, nose congestion, acuity changes, discharge, other ENT: Denies: no symptoms, see HPI, ear pain, ear discharge, nose pain, nose congestion, throat pain, throat swelling, mouth pain, hearing loss, nasal discharge, other Respiratory: Denies: no symptoms, see HPI, cough, orthopnea, shortness of breath, stridor, wheezing, PAYNE, sputum, other Cardiovascular: Denies: no symptoms, see HPI, chest pain, edema, palpitations, syncope, PND, other Gastrointestinal: Reports: abdominal pain, constipation Genitourinary: Denies: no symptoms, see HPI, discharge, dysuria, frequency, hematuria, pain, retention, incontinence, urgency, vag bleed/dc, other Musculoskeletal: Denies: no symptoms, see HPI, back pain, gout, joint pain, joint swelling, muscle pain, muscle stiffness, other Skin: Denies: no symptoms, see HPI, rash, change in color, change in hair/nails , dryness, lesions, other Psychiatric: Denies: no symptoms, see HPI, prior hx, anxiety, depressed feelings, emotional problems, SI, HI, hallucinations, other Neurological: Denies: no symptoms, see HPI, headache, numbness, paresthesia, seizure, tingling, tremors, focal weakness, syncope, dizziness, other Endocrine: Denies: no symptoms, see HPI, excessive sweating, flushing, intolerance to temperature, increased thirst, increased urine, unexplained weight loss, other Hematologic/Lymphatic: Denies: no symptoms, see HPI, anemia, blood clots, easy bleeding, easy bruising, swollen glands, diathesis, other Physical Exam General Appearance: no apparent distress, alert Lines, tubes and drains: peripheral HEENT: normocephalic, mucous membranes moist, PERRL Neck: normal alignment, normal inspection Respiratory/Chest: normal breath sounds, no respiratory distress, no accessory muscle use Cardiovascular/Chest: normal peripheral pulses, normal rate, regular rhythm Abdomen: normal bowel sounds, soft, no organomegaly, no mass, tender - non tender but mild discomfort in rlq and lower abdominal deep palpation , other - midline wound with erythema. Extremities: normal inspection Skin Exam: normal pigmentation Neurologic: alert, oriented x 3 Last 24 Hour Vital Signs Date Time Temp Pulse Resp B/P (MAP) Pulse Ox O2 Delivery O2 Flow Rate FiO2 09/12/17 16:00 98.3 71 16 141/52 98 Room Air 98.3 09/12/17 15:51 98.4 83 18 162/100 99 Room Air 98.4 Height (Feet): 5 Height (Inches): 3.00 Weight (Pounds): 150 Assessment/Plan Problem List: (1) Abdominal pain Assessment & Plan: lower abdominal pain. likely constipation. midline wound evaluated. has seroma prior to discharge in lower portion and required opening to small portion of wound which has been healing well since. some erythema around mid wound today and fluid collection noted under skin. ruthie removed and small portion of mid wound opened and hematoma evacuated. wound irrigated and cleaned and packing and dressings initiated. \ CT A/P with oral and IV contrast to ensure no intraabdominal pathology Labs if CT and labs okay, d/c home. wound care as instructed. packing and dressings BID. follow up with me in [address] or labs abnormal will admit for further care. ICD Codes: R10.9 - Unspecified abdominal pain SNOMED: [id number] Qualifiers: Qualified Codes: R10.30 - Lower abdominal pain, unspecified Status: stable Blake Farley Sep 12, 2017 16:38
--- NOTE | 2017-09-12 16:49 | Emergency Room Report ---
History of Present Illness General Chief Complaint: Abdominal Pain Source: Patient, Family Member Present Illness HPI [id number] presents with 5 days of generalized Abdominal pain, worse in the last day. Associated with no bowel movement for 3 days. Denies fever or chills or nausea or vomiting or diarrhea. Was supposed to followup with surgeon this afternoon for wound check and possible staple removal however patient did not go to appointment. Patient had exploratory laparotomy 6 days ago for sigmoid diverticulitis rupture. She has been taking Tylenol only for pain. Allergies: Coded Allergies: No Known Allergies (Unverified , 08/30/17) Patient History Past Medical History: see triage record, old chart reviewed Past Surgical History: other - see hpi Pertinent Family History: none Social History: Denies: smoking, alcohol use, drug use Now: No Immunizations: UTD Reviewed Nursing Documentation: PMH: Agreed, PSxH: Agreed Nursing Documentation-PMH Hx Hypertension: Yes Hx Cancer: No Hx Neurological Problems: No Review of Systems All Other Systems: negative except mentioned in HPI Physical Exam Vital Signs Date Time Temp Pulse Resp B/P (MAP) Pulse Ox O2 Delivery O2 Flow Rate FiO2 09/12/17 15:51 98.4 83 18 162/100 99 Room Air 98.4 Sp02 EP Interpretation: reviewed, normal General Appearance: normal inspection, well appearing, no apparent distress, alert, GCS 15, non-toxic, obese Head: normocephalic, atraumatic Eyes: bilateral eye PERRL, bilateral eye EOMI ENT: normal ENT inspection, hearing grossly normal, normal pharynx, no angioedema, normal voice, TMs + canals normal, uvula midline, moist mucus membranes Neck: normal inspection, full range of motion, supple, thyroid normal, no meningismus, no bony tend Respiratory: normal inspection, lungs clear, normal breath sounds, no rhonchi, no respiratory distress, no retraction, no accessory muscle use, no wheezing, speaking full sentences Cardiovascular #1: regular rate, rhythm, no edema, no JVD, normal capillary refill Gastrointestinal: normal inspection, normal bowel sounds, no mass, no peritonitis, non-distended, no guarding, no hernia, no pulsatile mass, other - Dressing removed from midline wound: There is some mild erythema and induration to middle of wound. [place] intact. Packing removed from lower aspect of wound. No pus expressed. Genitourinary: no CVA tenderness Musculoskeletal: normal inspection, back normal, normal range of motion, no calf tenderness, pelvis stable, Marleny's Sign negative Neurologic: normal inspection, alert, oriented x3, responsive, billing collections specialist III-XII nml as tested, motor strength/tone normal, cerebellar normal, normal gait, speech normal Psychiatric: normal inspection, judgement/insight normal, mood/affect normal, no suicidal/homicidal ideation, no delusions Skin: normal inspection, normal color, no rash Lymphatic: normal inspection, no adenopathy Medical Decision Making Diagnostic Impression: Primary Impression: Abdominal pain Qualified Codes: R10.30 - Lower abdominal pain, unspecified ER Course Dr Solorzano bedside - ruthie removed, hematoma and debris expressed Concern for possible intr-abd infection Labs: Mild leuks 12k CTAP: All post-op changes. [facility] d/w with both me and Dr Solorzano He gave her Rx for pain control and will schedule f/up DC ER course: Patient has remained stable during ED stay. Disposition: Patient is to be discharged to home. Prescriptions given by Dr Solorzano Patient is instructed to follow up with their primary care doctor within 5 days. Strict return precautions discussed with patient such as fever, chills, worsening/severe pain, nausea, vomiting, which may indicate severe illness. Patient verbalizes understanding and agrees with plan. Please note that this Emergency Department Report was dictated using [employer] department supervisor technology software, occasionally this can lead to erroneous entry secondary to interpretation by the dictation equipment Rhythm Strip Diag. Results EP Interpretation: yes Rate: 65 Rhythm: NSR, no PVC's, no ectopy Last Vital Signs Date Time Temp Pulse Resp B/P (MAP) Pulse Ox O2 Delivery O2 Flow Rate FiO2 09/12/17 16:00 98.3 71 16 141/52 98 Room Air 98.3 Status: improved Disposition: HOME, SELF-CARE MOLINA CONET M.D. Sep 12, 2017 16:49
[2017-09-12 16:52] LABS: BASOPHILS % (AUTO) 0.6 % (0.0-2.0); EOSINOPHILS % (AUTO) 0.4 % (0.0-3.0); HEMOGLOBIN 13.1 G/DL (12.0-16.0); LYMPHOCYTES % (AUTO) 18.6 % (20.0-45.0); MEAN CORPUSCULAR VOLUME 93 FL (80-99); MONOCYTES % (AUTO) 4.8 % (1.0-10.0); NEUTROPHILS % (AUTO) 75.7 % (45.0-75.0); PLATELET COUNT 382 K/UL (150-450); RED BLOOD COUNT 4.08 M/UL (4.20-5.40); RED CELL DISTRIBUTION WIDTH 12.5 % (11.6-14.8); WHITE BLOOD COUNT 12.3 K/UL (4.8-10.8)
[2017-09-12 17:19] LABS: ANION GAP 9 mmol/L (5-15); BLOOD UREA NITROGEN 12 mg/dL (7-18); CALCIUM 9.5 MG/DL (8.5-10.1); CARBON DIOXIDE 28 MMOL/L (21-32); CHLORIDE 102 MMOL/L (98-107); CREATININE 0.8 MG/DL (0.55-1.30); POTASSIUM 4.3 MMOL/L (3.5-5.1); SODIUM 139 MMOL/L (136-145)
[2017-09-12 17:24] LABS: ALANINE AMINOTRANSFERASE 34 U/L (12-78); ALBUMIN 3.1 G/DL (3.4-5.0); ALBUMIN/GLOBULIN RATIO 0.6 (1.0-2.7); ALKALINE PHOSPHATASE 63 U/L (46-116); ASPARTATE AMINO TRANSFERASE 24 U/L (15-37); BILIRUBIN,TOTAL 0.8 MG/DL (0.2-1.0)
[2017-09-12 18:35] VITALS: BP 140/61
[2017-09-12 20:07] VITALS: BP 137/53
[2017-09-12 20:08] VITALS: BP 137/53
--- NOTE | 2017-09-13 09:37 | Diagnostic Imaging Report ---
Clinical Indication: Abdominal pain, right upper quadrant pain, status post recent surgery for perforated diverticulitis Technique: Patient given oral contrast. IV administration nonionic contrast. Venous phase spiral acquisition obtained through the abdomen and pelvis. Multiplanar reconstructions were generated. Total dose length product 710.73 mGycm. CTDIvol(s) 13.24 mGy. Dose reduction achieved using automated exposure control Comparison: August 30, 2017 Findings: Interim sigmoid resection with end-to-side sigmoid sigmoid anastomosis. Pocket of gas adjacent to the main bowel lumen probably reflects the end to side anastomosis and probably does not represent extraluminal gas. Small amount of infiltration of the perisigmoid fat, presumably representing retained postsurgical inflammation. Small bubble of gas is seen in the fat just lateral to the body of the stomach. No other evidence of extraluminal gas or fluid. Previously demonstrated extensive extraluminal gas and pneumoperitoneum are no longer evident. There is a midline open surgical wound. No definite abdominal wall fluid collection or periincisional fluid collection demonstrated. Contrast is seen throughout most of the small bowel, which is nondilated. Contrast does not reach the distal ileum, however. The appendix is normal. There is a moderate amount of stool in the rectum which is minimally distended The inferior mesenteric vein enhances less than other mesenteric veins, and there is slight infiltration of the surrounding fat. The liver demonstrates mild low attenuation, consistent with fatty change, as well as focal fatty infiltration in the usual location adjacent to the falciform ligament. The gallbladder, bile ducts, pancreas, spleen, adrenals are unremarkable. There is mild fullness to the bilateral renal collecting system, right greater than left, similar to previous, but no downstream obstructing lesion demonstrated. The left kidney demonstrates a subcentimeter low-attenuation lesion which is too small to characterize. The right kidney is unremarkable. The bladder is distended, contains a small amount of air. The uterus and ovaries are surgically absent. The included lung bases are clear except for minimal dependent atelectatic changes. The heart is borderline enlarged. The bones demonstrate degenerative spondylosis changes and mild lumbar scoliotic deformity. Impression: Postsurgical changes, as described, status post sigmoid resection and re-anastomosis for previously demonstrated perforated sigmoid diverticulitis. No definite unusual features Extraluminal gas in the left upper quadrant, probably residual from previous surgery or perforation Slight decreased enhancement of the inferior mesenteric vein. Suspect related to timing of contrast bolus, but thrombosis of this vessel not completely excludable Moderate amount of stool in the rectum which is minimally distended, could indicate mild rectal fecal impaction Hepatic fatty change and focal fatty infiltration Subcentimeter left renal lesion, too small to characterize, most likely benign cortical cysts. No further follow-up necessary Small amount of air within the bladder, probably related to prior instrumentation. Borderline cardiomegaly Degenerative spondylosis and mild lumbar scoliotic deformity Bilateral basilar pulmonary parenchymal atelectatic changes This essentially agrees with the preliminary interpretation provided overnight by [facility], with minor nonsignificant discrepancies. The CT scanner at [facility] is accredited by the [employer] and the scans are performed using protocols designed to limit radiation exposure to as low as reasonably achievable to attain images of sufficient resolution adequate for diagnostic evaluation.
== END 2017-09-12 20:08 | disposition home or self-care (01) ==
LOC: EDBD 15:54 → EMR 16:15
DX: R10.84 Generalized abdominal pain (principal); Z48.02 Encounter for removal of sutures; I10 Essential (primary) hypertension; Z87.19 Personal history of other diseases of the digestive system; M47.816 Spondylosis without myelopathy or radiculopathy, lumbar region; M81.0 Age-related osteoporosis without current pathological fracture
CPT/HCPCS: 36415; 74177; 80053; 85025; 99284; Q9967

== ENCOUNTER 2017-12-06 12:39 | Emergency (ER) | payer MEDICAID ==
[~2017-12-06] VITALS: Ht 167.6 cm; Wt 72.6 kg
[~2017-12-06 12:39] MED LIST changes: +COLACE100 MG ORAL
[2017-12-06 13:15] VITALS: BP 146/73
--- NOTE | 2017-12-06 13:21 | Emergency Room Report ---
History of Present Illness General Chief Complaint: Back Pain-No Injury Source: Patient Present Illness HPI 77-year-old female patient presents ER complaining of chronic low back pain. Patient was brought in by her daughter. Reports history of low back pain for multiple years. Reports pain symptoms increased last 2 weeks. Daughter reports that patient usually lives in [place] and seen by doctors down there, has had previous imaging done. Reports no recent imaging in over 10 years. Reports radiation of pain symptoms sound legs is similar to symptoms present in the past. Denies bowel or bladder incontinence. Denies history of cancer. Denies pain with urination. Denies abdominal pain. Denies IV drug use. Denies fever, chest pain, shortness of breath. denies recent injury. reports usually receives injections into her back for pain symptoms. walks with cane. Allergies: Coded Allergies: No Known Allergies (Unverified , 08/30/17) Patient History Past Medical History: see triage record Reviewed Nursing Documentation: PMH: Agreed; PSxH: Agreed Nursing Documentation-PMH Past Medical History: No History, Except For Hx Hypertension: Yes Hx Cancer: No Hx Neurological Problems: No Review of Systems All Other Systems: negative except mentioned in HPI Physical Exam Vital Signs Date Time Temp Pulse Resp B/P (MAP) Pulse Ox O2 Delivery O2 Flow Rate FiO2 12/06/17 12:42 98.2 70 18 146/73 95 Room Air 98.2 Sp02 EP Interpretation: reviewed, normal General Appearance: well appearing, no apparent distress, alert, GCS 15, non- toxic Head: normocephalic, atraumatic Neck: full range of motion Respiratory: lungs clear, normal breath sounds, no rhonchi, no respiratory distress, no accessory muscle use, no wheezing, speaking full sentences Cardiovascular #1: regular rate, rhythm, no edema Gastrointestinal: non tender, soft, no mass, non-distended, no guarding, no rebound Musculoskeletal: back normal, digits/nails normal, gait/station normal, normal range of motion, non-tender, other - no bony step-off, no ecchymosis, no bony tenderness Neurologic: alert, oriented x3, responsive, motor strength/tone normal, SLR negative, sensory intact Medical Decision Making PA Attestation Dr. Guerin is my supervising Physician whom patient management has been discussed with. Diagnostic Impression: Primary Impression: Chronic back pain ER Course Pt presents to ED c/o back pain. DDX considered but are not limited to stenosis, fracture, disc herniation, sciatica, sprain, strain, cauda equine, epidural abscess, AAA, spinal cord compression. Low suspicion for cauda equina, no bowel or bladder incontinence or retention. No fever, nontoxic appearing, no new or worsening of radiation of pain, low suspicion for epidural mass. No abdominal pain, no blood pressure elevation, nontoxic appearing, low suspicion for AAA. Denies dysuria, hematuria, urinary complaints, low suspicion for UTI, does not require a UA at this time. due to worsening of symptoms and no recent image is in the past 10 years will order lumbar x-ray to rule out underlying pathology. VITAL SIGNS are WNL, patient is afebrile Ordered pain medication, imaging, labs. ER COURSE: Pain medication provided. Imaging ordered. Xray shows no acute fracture, degenerative changes, per the official reading. discuss results with the patient, provide him a CD of images. Patient needs to followup with primary care provider and discuss further treatment or referral that time. Cannot provide her with Opioid medication to go home with, needs prescription from primary care provider and/or pain management. informed patient to not perform pain medication injections into the spine in the ER, needs to be performed by PCP or paint mixer hand. Followup with pain management and/or PT. Request referral from PCP. Followup with PCP for further MRI and/or CT imaging as needed. patient able ambulate with assistance of cane, smiling and talking without difficulty. Patient reports feeling better following administration of medication. DISCHARGE: -Rx provided for Tylenol -Rx provided for Lidocaine patch At this time pt. is stable for d/c to home. At this time patient is resting comfortably, in no acute distress, nontoxic appearing, smiling and talking without difficulty. Will provide printed patient care instructions, and any necessary prescriptions. Patient instructed to follow with primary care provider for further treatment and referral as needed. Care plan and follow up instructions have been discussed with the patient prior to discharge. Patient reports understanding and agreement to treatment plan. Patient questions asked and answered. ER precautions given, patient instructed to return to ER immediately for any new or worsening of symptoms. - Please note that this Emergency Department Report was dictated using [employer] technology software, occasionally this can lead to erroneous entry secondary to interpretation by the dictation equipment. Other X-Ray Diagnostic Results Other X-Ray Diagnostic Results : X-Ray ordered: lumbar spine # of Views/Limited Vs Complete: 3 View Indication: Pain EP Interpretation: Yes PA Xray: Interpretation reviewed, by supervising MD, and agrees with findings. Interpretation: no dislocation, no soft tissue swelling, no fractures Impression: Other - Degenerative changes ROBSON Scribe Text Federico Gregory PA-C Last Vital Signs Date Time Temp Pulse Resp B/P (MAP) Pulse Ox O2 Delivery O2 Flow Rate FiO2 12/06/17 12:42 98.2 70 18 146/73 95 Room Air 98.2 Disposition: HOME, SELF-CARE Condition: Stable Scripts Lidocaine (Lidocaine) 1 Each Adh..patch 700 MG TP DAILY for 7 Days, #7 PATCH Prov: Chino Gregory 12/06/17 Acetaminophen* (TYLENOL EXTRA STRENGTH*) 500 Mg Tablet 500 MG ORAL Q8H PRN for Prn Headache/Temp > 101, #30 TAB 0 Refills Prov: Chino Gregory 12/06/17 Patient Instructions: Back Pain, Adult, Sciatica Additional Instructions: Patient instructed to follow up with primary care provider 3-5 and discuss further referral and imaging at that time. Patient instructed on rest, ice and heat. Do not take muscle relaxant prior to drinking, driving, or operating heavy machinery. Take medications as directed. Patient questions asked and answered. ER precautions given, patient instructed to return to ER immediately for any new or worsening of symptoms. Chino Gregory December 06, 2017 13:21
[2017-12-06] MEDS ORDERED: Norco 5mg/325mg tab ORAL ONE (13:30)
[2017-12-06] MEDS ORDERED: LIDOCAINE700 M1 TP (14:05)
[2017-12-06] MEDS ORDERED: TYLENOL EXTRA500 MG ORAL (14:05)
--- NOTE | 2017-12-06 14:51 | Diagnostic Imaging Report ---
Indication: Pain Technique: 3 views of the lumbar spine Comparison: None Findings:There is lumbar dextroscoliotic deformity. Bony alignment is otherwise unremarkable. Vertebral body heights are preserved. Bones are osteoporotic. There is degenerative disc narrowing at L5-S1. The remaining disc spaces are preserved. There is degenerative facet arthrosis at L5-S1 as well. No definite acute fractures. Impression: Degenerative changes as described No definite acute bony trauma
[2017-12-06 15:08] VITALS: BP 146/73
== END 2017-12-06 15:09 | disposition home or self-care (01) ==
LOC: EMR 13:52
DX: G89.29 Other chronic pain (principal); M54.5 Low back pain; I10 Essential (primary) hypertension
CPT/HCPCS: 72020; 99284